=== PATIENT | male | born 1975 | race Two or more races ===

== ENCOUNTER 2025-02-08 06:54 | Inpatient (IN) | payer SELFPAY ==
[2025-02-08] VITALS (50 sets, daily range): BP systolic 81–149; BP diastolic 46–94; PULSE 77–171; RESP 0–36; TEMP 36.6–39.5; O2SAT 74–100; BMI 30.9
--- NOTE | 2025-02-08 07:06 | XR_ITS ---
Examination: Foot, left, 3 views Technique: AP, oblique, lateral views foot, 3 views Date and time of exam: February 08, 2025 0824 hours INDICATIONS: Left foot redness swelling and pain this week FINDINGS: Moderate osteopenia 4 mm linear foreign body in the soft tissue adjacent to the ungual tuft of distal phalanx first digit There is periosteal new bone involving the distal second and third metatarsals Very prominent soft tissue swelling surrounding the foot with air densities in the soft tissue around the distal tibia IMPRESSION: Positive for linear foreign body in the soft tissue first digit Osteomyelitis second and third metatarsals Consider MRI foot without contrast follow-up
--- NOTE | 2025-02-08 07:09 | XR_ITS ---
Examination: Duplex scan of the lower extremity, unilateral left Date and time of exam: February 08, 2025 0800 hours INDICATIONS: Left leg swelling and pain one month with a nonhealing wound Technique: Duplex scan of the extremity veins using B-mode/grayscale imaging and Doppler spectral analysis and color flow Attention is directed to internal echogenicity, compression and augmentation involving these veins, color flow assessment, spectral analysis Findings: Major deep venous structures in the extremity demonstrate normal course and caliber. There is no evidence of deep vein thrombosis. Normal color flow and spectral analysis Lymph nodes anterior to the left common femoral vein, the largest 3.7 cm Impression: Negative for DVT..
--- NOTE | 2025-02-08 07:09 | PD.EDRME ---
Rapid Medical Screening Exam RME Arrival date/time: 02/08/25 06:54 49-year-old male presents emergency department today for complaints of spider bite to his left foot patient reports incident happened 2 months ago Chief Complaint: Animal Bite Time Seen by Provider: 02/08/25 07:01 Vital signs: Vital Signs Temperature 99.6 F 02/08/25 07:06 Pulse Rate 119 H 02/08/25 07:06 Respiratory Rate 20 02/08/25 07:06 Blood Pressure 117/77 02/08/25 07:06 Pulse Oximetry (%) 100 02/08/25 07:06 Oxygen Delivery Method Room Air 02/08/25 07:06
[2025-02-08 07:48] LABS: Lactate (Lactic Acid) 2.1 mMol/L (0.4-2.0)
[2025-02-08 08:32] LABS: INR 1.5 (0.9-1.3); Prothrombin Time 15.8 Seconds (9.0-12.2)
[2025-02-08 08:35] LABS: Basophils # (Auto) 0.2 Thou/mm3 (0.0-0.2); Basophils % (Auto) 1 % (0-2.5); Eosinophils % (Auto) 0 % (0-10); Hematocrit 27.1 % (41.0-53.0); Hemoglobin 9.1 g/dL (13.5-16.0); Immature Granulocytes % (Auto) 5 % (0-0); Immature Granulocytes Auto 1.53 Thou/mm3 (0.00-0.00); Lymphocytes # (Auto) 1.6 Thou/mm3 (1.0-4.8); Lymphocytes % (Auto) 5 % (10-50); Mean Corpuscular HGB Conc 33.6 g/dl (31.0-37.0); Mean Corpuscular Hemoglobin 28.4 pg (25.0-35.0); Mean Corpuscular Volume 85 fL (80-100); Monocytes % (Auto) 6 % (0-12); Neutrophils # (Auto) 28.8 Thou/mm3 (1.8-7.7); Neutrophils % (Auto) 85 % (37-80); Nucleated Red Blood Cell % 0 /100 WBC (0); Platelet Count 531 Thou/mm3 (140-440); RDW Standard Deviation 38.9 fL (35.1-43.9); White Blood Count 34.1 Thou/mm3 (3.8-10.6)
[2025-02-08 08:42] LABS: Alanine Aminotransferase 26 U/L (10-49); Albumin, Serum 3.1 gm/dL (3.5-5.0); Albumin/Globulin Ratio 0.8 (1.2-2.2); Alkaline Phosphatase 225 U/L (46-116); Anion Gap 10 (7-16); Aspartate Amino Transferase 71 U/L (0-34); BUN/Creatinine Ratio 15 Ratio (12-20); Bilirubin,Total 0.6 mg/dL (0.3-1.2); Blood Urea Nitrogen 15 mg/dL (9-23); Calcium 8.1 mg/dL (8.3-10.6); Calcium (Corrected) 8.8 mg/dL (8.5-10.1); Carbon Dioxide 24.3 mMol/L (20.0-31.0); Chloride 88 mMol/L (98-107); Estimated Creatinine Clearance 88.1 mL/min (>60); Globulin 3.7 gm/dL (2.3-3.5); Potassium 4.1 mMol/L (3.4-5.1); Procalcitonin 4.79 ng/ml (0.0-0.49); Sodium 122 mMol/L (136-145); Total Protein 6.8 gm/dL (5.7-8.2); eGFR > 60 See Note
[2025-02-08 08:46] LABS: C-Reactive Protein 23.6 mg/dL (0.0-0.9); Osmolality,Calculated 264 (275-295)
[2025-02-08 08:54] LABS: Glucose 425 mg/dL (74-106)
--- NOTE | 2025-02-08 08:56 | PC.NURSE ---
CALL FROM [facility]ANDA IN LAB. PT'S GLUCOSE IS 425. DR. GOLDEN INFORMED.
--- NOTE | 2025-02-08 09:00 | PC.NURSE ---
PT CAME TO ED WITH A SWOLLEN, PAINFUL L) FOOT AND LOWER LEG. PT SAY HE WAS BIT BY A SPIDER OVER A MONTH AGO. MD ASSESSED LEG AND SAID THERE WAS A FOREIGN OBJECT IN PT'S FOOT. PT RESTING COMFORTABLY IN BED WITH FRIEND AT BEDSIDE. SEPSIS ALERT CALLED SO WILL FOLLOW SEPSIS PROTOCOL. WILL CONTINUE TO MONITOR PT.
--- NOTE | 2025-02-08 09:00 | PC.NURSE ---
SEPSIS ALERT CALLED [phone].
--- NOTE | 2025-02-08 09:07 | PD.EDSKIN ---
ED Skin Abcess FB-RME/HPI General Chief complaint: Animal Bite Stated complaint: POSS SPIDER BITE ON LEFT FOOT Time Seen by Provider: 02/08/25 07:01 Arrival date/time: 02/08/25 06:54 Limitations: no limitations RME / HPI RME / HPI narrative: 02/08/25 06:54 49-year-old male presents emergency department today for complaints of spider bite to his left foot patient reports incident happened [address] HERMAN MAIN ED EVALUATION: 49 year old male presents to the Emergency Department with complaint of right foot and right lower leg (below the knee) swelling. He states that he was bit by a spider one month ago. He has a foreign body showed in his foot, patient unsure of what happened or what the foreign body could be. PMHx: Diabetes. No surgeries or known allergies. Social Hx: Polysubstance use (methamphetamine and marijuana). Related Data Home Medications ?Medication ?Instructions ?Recorded ?Confirmed No Known Home Medications 07/09/23 07/09/23 Allergies Allergy/AdvReac Type Severity Reaction Status Date / Time No Known Allergies Allergy Verified 05/06/24 07:38 Review of Systems Review of Systems Systems Reviewed: All systems reviewed, normal except as documented Narrative Review of Systems: GEN: No fever, no chills, no weight loss EYES: No discharge, no visual changes, no pain HEENT: No ear pain, no congestion, no sore throat PULM: No shortness of breath, no cough, no congestion CV: No chest pain, no dyspnea on exertion, no palpitations GI: No nausea, no vomiting, no diarrhea, no pain, no constipation : No frequency, no urgency and no dysuria MUSC/SKEL: + right foot and right lower leg (below the knee) swelling; no back pain SKIN: No rash PSYCH: No hallucinations, no depression HEME/LYMPH: No easy bleeding or bruising tendencies NEURO: No weakness, no headache Past Medical History Past Medical History CARDIAC: Positive Hypertension Social History SMOKING STATUS: Current some day smoker SUBSTANCE USE: does not use ALCOHOL: Never ED Exam General Limitations: Present no limitations General appearance: Present alert and in no apparent distress Head Head exam: Present atraumatic, normocephalic and normal inspection Eye Eye exam: Present normal appearance, PERRL and EOMI ENT ENT exam: Present normal exam, normal oropharynx and mucous membranes moist Neck Neck exam: Present normal inspection, full ROM and trachea midline Chest Chest inspection: Present normal inspection and symmetric chest wall rise Respiratory Respiratory exam: Present normal lung sounds bilaterally Cardiovascular Cardiovascular exam: Present regular rate, normal rhythm and normal heart sounds Abdominal Exam Abdominal exam: Present soft and normal bowel sounds Extremities Exam Extremities exam: Present full ROM and other (right foot swelling extending to the right lower leg up to below the knee; difficult to access pulses) Back Exam Back exam: Present normal inspection and full ROM Neurological Exam Neurological exam: Present alert, oriented X3 and CN II-XII intact Psychiatric Psychiatric exam: Present normal affect and normal mood Skin Skin exam: Present warm and dry Course Quality Measures Current suspected stage: sepsis Possible source: skin/soft tissue (and bone) Blood cultures ordered: yes Antibiotic ordered: Yes Pertinent labs: 02/08/25 02/08/25 07:42 11:37 Lactic Acid 2.1 H mMol/L 3.4 H mMol/L (0.4-2.0) (0.4-2.0) Procalcitonin 4.79 H ng/ml (0.0-0.49) sepsis Orders Category Date Time Status Admit to Inpatient Status Routine Admission 02/08/25 12:[address] Screening NOW Care 02/08/25 09:[address] Screening NOW Care 02/08/25 11:01 Active Insert IV NOW Care 02/08/25 07:10 Active Diet Carbohydrate Consistent Diet 02/08/[address] lower leg LT w con Stat Exams 02/08/25 11:01 Completed US venous doppler LE LT Stat Exams 02/08/25 07:09 Completed XR foot comp LT min 3V Stat Exams 02/08/25 07:06 Completed A1C [Glycohemoglobin w (eAG)] Stat Lab 02/08/25 07:42 Completed Blood Culture (Lab) Stat Lab 02/08/25 07:37 Received CBC Stat Lab 02/08/25 07:42 Completed CMP [Comprehensive Metabolic Panel] Stat Lab 02/08/25 07:42 Completed CRP [C-Reactive Protein] Stat Lab 02/08/25 07:42 Completed Drug Screen,Urine Stat Lab 02/08/25 09:35 Completed ESR [Sed Rate (ESR)] Stat Lab 02/08/25 07:42 Completed Lactic Acid [Lactate (Lactic Acid)] Stat Lab 02/08/25 07:42 Completed Lactic Acid [Lactate (Lactic Acid)] Stat Lab 02/08/25 12:56 Ordered Lactic Acid, 3 HR Stat Lab 02/08/25 11:37 Completed PT [Prothrombin Time with INR] Stat Lab 02/08/25 07:42 Completed PTT [Partial Thromboplastin Time] Stat Lab 02/08/25 07:42 Completed Procalcitonin Stat Lab 02/08/25 07:42 Completed Renal Function Panel Stat Lab 02/08/25 12:55 Ordered INSULIN LISPRO (AdmeLOG) [HumaLOG] Med 02/08/25 09:17 Discontinued 5 unit SC X1 ONE Insulin Regular Med 02/08/25 12:55 Once 10 unit IV X1 ONE Insulin Regular Med 02/08/25 09:17 Discontinued 5 unit IV X1 ONE Piper/Tazo 3.375 gm Premix [Zosyn] Med 02/08/25 07:11 Discontinued 3.375 gm in 50 ml IV X1 Sodium Chloride 0.9% 1000 ml [Ns] 1,000 ml Med 02/08/25 09:17 Active IV 200 mls/hr Sodium Chloride 0.9% 1000 ml [Ns] 1,000 ml Med 02/08/25 12:56 Ordered IV 999 mls/hr Sodium Chloride 0.9% 1000 ml [Ns] 1,000 ml Med 02/08/25 12:57 Ordered IV 999 mls/hr Vancomycin/Ns 1 gm Ivpb 200 ml Med 02/08/25 07:15 Discontinued IV X1 Transfer Order Routine Transfer 02/08/25 10:58 Active Reevaluation(s) Reevaluation #1: Patient remains clinically stable throughout the emergency department visit. Re-assessment at the time of disposition demonstrates that the patient is in no acute distress. We reviewed all the results, analysis, and treatment plans. Patient is amenable to discharge. Strict return precautions were outlined. Patient was discharged in stable condition. Time: 09:34 Vital Signs Vital signs: Vital Signs Temperature 99.6 F 02/08/25 07:06 Pulse Rate 119 H 02/08/25 07:06 Respiratory Rate 20 02/08/25 07:06 Blood Pressure 117/77 02/08/25 07:06 Pulse Oximetry (%) 100 02/08/25 07:06 Oxygen Delivery Method Room Air 02/08/25 07:06 Skin / Abscess / Foreign Body MDM Narrative MDM Narrative:: I, Joseline Nik, am scribing for and in the presence of Dr. Herman. Patient is presenting with signs symptoms of infection of the left leg and the foot the x-ray does show osteomyelitis, patient also has severe leukocytosis Differential diagnoses are wide but include mainly the neck fasciitis and osteomyelitis with cellulitis There is also possibility of bacteremia Patient is not in septic shock But he definitely is in severe sepsis Patient will need to be covered for Pseudomonas and MRSA He does have diabetes There is also foreign body in his foot We need to have surgical evaluation for this foreign body Also we need to make sure there is no abscess in the foot or the leg area We get a gas CAT scan for the foot and leg Will cover with Zosyn and vancomycin Also on top this patient's sugar is elevated Will need to control his sugar As above we will get surgical evaluation Patient will be admitted for IV antibiotics and possible debridement and removal of the foreign body from the infected tissue I spoke with the hospitalist and he agreed to admit the patient He will also call the general surgeon for evaluation for this abscess in the leg CAT scan shows presence of lower leg abscess CAT scan of the foot showed no evidence of any abscess There is no foreign body there to Patient had extensive cellulitis but no necrotizing fasciitis Patient has sepsis but no septic shock Patient had uncontrolled diabetes Patient will be admitted and also have an I&D of the abscess and get his sugar controlled Patient was covered with Zosyn and vancomycin Final assessment Cellulitis Abscess of the leg Osteomyelitis Uncontrolled diabetes Patient data External records reviewed:: [facility] previous records (Reviewed last admission discharge dated 07/15/23, patient admitted for the following: AMS) Clinical information provided by:: patient Social determinants that could affect healthcare access:: substance use (polysubstance use (methamphetamine and marijuana)) Patient has the following chronic illnesses:: Diabetes and polysubstance use (methamphetamine and marijuana). No surgeries or known allergies. How is presenting disease/condition affected by chronic disease/condition?: no chronic disease Evaluation data The following diagnostics were reviewed and interpreted by me:: lab results and radiology exam(s) Lab and/or radiology exams considered but not ordered:: none Interpretation Summary: Procedure(s): US venous doppler LE LT Accession Number(s): [id number] cc: Fransisco (BAMBI),Maurice LACY; Walter Peterson MD; NO PRIMARY/FAMILY,PHYSICIAN~ Examination: Duplex scan of the lower extremity, unilateral left Date and time of exam: February 08, 2025 0800 hours INDICATIONS: Left leg swelling and pain one month with a nonhealing wound Technique: Duplex scan of the extremity veins using B-mode/grayscale imaging and Doppler spectral analysis and color flow Attention is directed to internal echogenicity, compression and augmentation involving these veins, color flow assessment, spectral analysis Findings: Major deep venous structures in the extremity demonstrate normal course and caliber. There is no evidence of deep vein thrombosis. Normal color flow and spectral analysis Lymph nodes anterior to the left common femoral vein, the largest 3.7 cm Impression: Negative for DVT.. Dictated By: Walter Peterson MD Procedure(s): XR foot comp LT min 3V Accession Number(s): [id number] cc: Fransisco (BAMBI),Maurice LACY; Walter Peterson MD; NO PRIMARY/FAMILY,PHYSICIAN~ Examination: Foot, left, 3 views Technique: AP, oblique, lateral views foot, 3 views Date and time of exam: February 08, 2025 0824 hours INDICATIONS: Left foot redness swelling and pain this week FINDINGS: Moderate osteopenia 4 mm linear foreign body in the soft tissue adjacent to the ungual tuft of distal phalanx first digit There is periosteal new bone involving the distal second and third metatarsals Very prominent soft tissue swelling surrounding the foot with air densities in the soft tissue around the distal tibia IMPRESSION: Positive for linear foreign body in the soft tissue first digit Osteomyelitis second and third metatarsals Consider MRI foot without contrast follow-up Dictated By: Walter Peterson MD Procedure(s): CT lower leg LT w con Accession Number(s): [id number] cc: Jennifer Herman MD; Walter Peterson MD; NO PRIMARY/FAMILY,PHYSICIAN~ Examination: CT left lower leg with intravenous contrast 2-D sagittal reconstructions. 2-D coronal reconstructions. 3-D reconstructions. Date and time of exam:February 08, 2025 1107 hours INDICATIONS: Left-sided leg pain and swelling several days, clinical diagnosis fasciitis CTDI: vol (mGy):6.7 DLP: (mGycm):474 Technique: Multiple 1.25 mm axial sections of the left lower extremity post intravenous administration 60 cc Isovue-370 have been obtained. 2-D sagittal and coronal reconstructions have been obtained. 3-D reconstructions have been obtained. Low dose protocols were performed. One or more of the following dose reduction techniques were used; automated exposure control, adjustment of the mA and/or KV according to patient size, use of iterative reconstruction technique. Findings: Diffuse edema in the subcutaneous fatty tissue surrounding the lower leg Atrophy of the medial gastrocnemius muscle fatty infiltration Soft tissue infection with gas-forming organisms in the anterior lower leg especially anterior and lateral to the tibia Soft tissue abscess anterior lateral lower leg AP dimension 6.5 cm cephalad caudad dimension 21 cm extending to the ankle, mediolateral dimension at least 2.5 cm No desmond cortical bone destruction involving the tibia IMPRESSION: Soft tissue abscess with gas-forming organisms in the soft tissue anterior and lateral to the mid and lower tibia extending to the ankle, 6.5 x 21 x 2.5 cm in dimension, recommend surgical consultation Dictated By: Walter Peterson MD Medications / Prescriptions Medications or Prescriptions considered but not ordered:: none Medication administrations:: Medication Administration History Sodium Chloride (Ns) 1,000 mls @ 200 mls/hr IV .Q5H ONE Stop: 02/08/25 14:16 Last Admin: 02/08/25 10:04 Dose: 200 mls/hr Documented By: MARGOT Sodium Chloride (Ns) 1,000 mls @ 999 mls/hr IV .Q1H1M ONE Stop: 02/08/25 13:56 Sodium Chloride (Ns) 1,000 mls @ 999 mls/hr IV .Q1H1M ONE Stop: 02/08/25 13:57 Insulin Human Regular (Insulin Hum Regular 1 Unit/0.01 Ml (Per Unit)) 10 unit IV X1 ONE Stop: 02/08/25 12:56 Discontinued Medications Piperacillin/Tazobactam/Dextrose (Zosyn) 3.375 gm in 50 mls @ 100 mls/hr IV X1 ONE Stop: 02/08/25 07:40 Last Infusion: 02/08/25 09:52 Dose: Infused Documented By: Admin: 02/08/25 09:22 Dose: 100 mls/hr Documented By: MARGOT Vancomycin/Sodium Chloride (Vancomycin/Ns 1 Gm Ivpb) 200 mls @ 120 mls/hr IV X1 ONE Stop: 02/08/25 08:54 Last Admin: 02/08/25 10:03 Dose: 120 mls/hr Documented By: MARGOT Insulin Human Lispro (Insulin Lispro (Admelog) 1 Unit/0.01 Ml Unit) 5 unit SC X1 ONE Stop: 02/08/25 09:18 Last Admin: 02/08/25 10:06 Dose: 5 unit Documented By: MARGOT Co-signed By: AJ Insulin Human Regular (Insulin Hum Regular 1 Unit/0.01 Ml (Per Unit)) 5 unit IV X1 ONE Stop: 02/08/25 09:18 Last Admin: 02/08/25 10:09 Dose: 5 unit Documented By: MARGOT Co-signed By: AJ see above Consultations Consultation(s) initiated? (list below): Yes Consultation #1 (Physician, Specialty, Details): Discussed test HPI, PMHx, lab, radiology results and/or management with hospitalist Dr. Ashford. Will admit for further evaluation and management. Accepts patient for admission. Surgery will be consulted. Time: 12:51 Diagnosis Skin/Abscess Differential Diagnosis: abscess of skin or subcutaneous tissue, cellulitis and other (osteomyelitis, neck fasciitis, bacteremia) Most likely diagnosis given after review of the tests above:: Osteomyelitis Leukocytosis Sepsis Right leg abscess Cellulitis Uncontrolled diabetes Admission Indicated Admission indicated?: indicated Admission Request Was there a request for admission?: Yes Admission Attestation Admission request attestation: Discussed case with [] from Hospitalist service regarding admission. Discussed patients ED course, exam findings, labs, and radiology results. The Hospitalist [agrees,declines] to accept the patient for admission. Disposition Plan Disposition Plan: Admit Critical Care Time Critical Care Time Critical Care Time: Yes Total Critical Care Time (min.): 60 Attestation: The high probability of sudden, clinically significant deterioration in the patient?s condition required the highest level of my preparedness to intervene urgently. The services I provided to this patient were to treat and/or prevent clinically significant deterioration. Services included the following: chart data review, reviewing nursing notes and/or old charts, documentation time, investment consultant collaboration regarding findings and treatment options, medication orders and management, direct patient care, vital sign assessments and ordering, interpreting and reviewing diagnostic studies and lab tests. Aggregate critical care time includes only time during which I was engaged in work directly related to the patient?s care, as described above, whether at bedside or elsewhere in the Emergency Department. It did not include time spent performing other reported procedures or the services of residents, students, nurses or physician assistants. Discharge Plan Plan Patient Disposition: Admit Acute Care w/in Hospital Patient condition on transfer: Stable Prescriptions/Referrals Prescriptions/Med Rec: No Action No Known Home Medications Referrals: No Primary/Family,Physician [Primary Care Provider] - In 1 week Problem List Clinical Impression: Sepsis, Osteomyelitis, Leukocytosis, Cellulitis and abscess of right leg, Uncontrolled diabetes mellitus Patient/Caregiver Discharge Instructions Print Language: Hungarian Stand Alone Forms: Sabiha Award Info., Patient Portal Info Letter
[2025-02-08 09:16] LABS: Sed Rate (ESR) 44 mm/hr (0-15)
--- NOTE | 2025-02-08 09:20 | PC.NURSE ---
CALL FROM RON IN CT. HE SAID THE DOC ORDER A CT OF THE FOOT AND A CT OF THE FOOT AND LOWER LEG. WHICH ORDER DID THE DOC TO WANT DONE. SPOKE W/ DR. ERNANDEZ AND HE SAID TO DISCONTINUE TO CT OF THE FOOT AND KEEP THE ORDER OF THE FOOT/LOWER LEG.
[2025-02-08] MEDS: PIPER/TAZO 3.375 GM PREMIX 3.375 GM/50 ML BAG IV ×2 (09:22→21:10)
[2025-02-08 09:48] LABS: Glucose Estimated Average 355 mg/dL (80-131); Hemoglobin A1C > 14.0 % Hgb (4.8-6.0)
[2025-02-08] MEDS: VANCOMYCIN/NS 1 GM IVPB 200 ML IV (10:03)
[2025-02-08] MEDS: SODIUM CHLORIDE 0.9% 1000 ML 1,000 ML 200 ML IV (10:04)
[2025-02-08] MEDS: INSULIN LISPRO (AdmeLOG) 1 UNIT/0.01 ML UNIT 5 UNIT SC (10:06)
[2025-02-08] MEDS: INSULIN HUM REGULAR 1 UNIT/0.01 ML (PER UNIT) 5 UNIT IV (10:09)
[2025-02-08 10:17] LABS: Amphetamine/Methamp Scrn,U Positive (Negative); Barbiturate Screen,Urine Negative (Negative); Benzodiazepines Screen,Urine Negative (Negative); Benzoylecgonine Screen, Ur Negative (Negative); Fentanyl Screen,Urine Negative (Negative); Opiate Screen,Urine Negative (Negative); THC Screen,Urine Negative (Negative)
[2025-02-08 10:47] LABS: Reflex Lactate? Y
--- NOTE | 2025-02-08 11:01 | XR_ITS ---
Examination: CT left lower leg with intravenous contrast 2-D sagittal reconstructions. 2-D coronal reconstructions. 3-D reconstructions. Date and time of exam:February 08, 2025 1107 hours INDICATIONS: Left-sided leg pain and swelling several days, clinical diagnosis fasciitis CTDI: vol (mGy):6.7 DLP: (mGycm):474 Technique: Multiple 1.25 mm axial sections of the left lower extremity post intravenous administration 60 cc Isovue-370 have been obtained. 2-D sagittal and coronal reconstructions have been obtained. 3-D reconstructions have been obtained. Low dose protocols were performed. One or more of the following dose reduction techniques were used; automated exposure control, adjustment of the mA and/or KV according to patient size, use of iterative reconstruction technique. Findings: Diffuse edema in the subcutaneous fatty tissue surrounding the lower leg Atrophy of the medial gastrocnemius muscle fatty infiltration Soft tissue infection with gas-forming organisms in the anterior lower leg especially anterior and lateral to the tibia Soft tissue abscess anterior lateral lower leg AP dimension 6.5 cm cephalad caudad dimension 21 cm extending to the ankle, mediolateral dimension at least 2.5 cm No desmond cortical bone destruction involving the tibia IMPRESSION: Soft tissue abscess with gas-forming organisms in the soft tissue anterior and lateral to the mid and lower tibia extending to the ankle, 6.5 x 21 x 2.5 cm in dimension, recommend surgical consultation
--- NOTE | 2025-02-08 11:32 | PC.NURSE ---
CALLED LAB AND SPOKE W/ KATIE RE: REPEAT LACTIC BEING DRAWN. SHE SAID SHE WILL SEND TRE.
[2025-02-08 11:44] LABS: Lactic Acid, 3 HR 3.4 mMol/L (0.4-2.0)
[2025-02-08 13:25] LABS: Lactate (Lactic Acid) 1.8 mMol/L (0.4-2.0)
--- NOTE | 2025-02-08 13:28 | PD.RESHP ---
Documentation for date of: 02/08/25 HPI History of Present Illness Chief complaint: leg swelling History of present illness: 49-year-old male with no past medical history presented to ED due to left lower extremity swelling. Patient states about a month ago patient had a spider bite and leg started to swell up, however 1 week ago swelling became more drastic and the patient was unable to walk or bear weight on the affected limb. Pain is described as 9 out of 10 when putting pressure on the extremity. Patient also endorses having fevers and chills for about 2 days. Patient lives with his nephew noticed that he was unable to walk or bear weight and was brought to the ED. Of note per ED labs here patient is diabetic with an A1c of more than 14 however patient was unaware that he was diabetic. At this time patient denies chest pain, shortness of breath, abdominal pain, nausea, vomiting, diarrhea, recent sick contacts, recent travel. General surgery was consulted and patient will be admitted for surgical intervention for necrotizing fascitis. ED course: ED vitals: BP 117/77, HR 119, RR 20, temperature 101.3, O2 sat 100% on room air ED labs: WBCs 34.1, hemoglobin 9.1, sodium 122, glucose 228, lactic acid 3.4 procalcitonin 4.79, U-Tox positive for methamphetamine, ED imaging: Foot x-ray shows osteomyelitis of 2nd and 3rd metatarsals, positive for linear foreign body in the soft tissue of first digit, ultrasound lower extremity negative for DVT, lower extremity CT positive for gas-forming organisms in the soft tissue anterior and lateral to the mid and lower tibia extending to the ankle. ED Tx: Zosyn 3.375 g x 1, vancomycin x 1, 2 L NS insulin lispro 5 units subcu, 15 units of regular insulin, general surgery consulted for necrotizing fascitis. PMHx: Unknown SxHx: None Social Hx: 1-1/2 packs every 2 days no cigarettes, denies alcohol use, denies illicit substances including THC however of note U tox came positive for methamphetamine. FHx: unknown Review of Systems Review of Systems Narrative Review of Systems: Narrative ROS GENERAL: + fevers/chills, diaphoresis. HEENT: Denies headache or visual/hearing changes. Denies nasal discharge. NEURO: Denies unusual weakness or difficulty speaking. CARDIO: Denies chest pain or palpitations. PULM: Denies SOB, coughing, or wheezing. GI: Denies abdominal pain, N/V/C/D/reflux/gas, bright red blood per rectum or melena. Reports having BMs. URO: Denies burning/itching/pain/urinary changes. MSK/EXT/SKIN: + pain on LLE PSYCH: Cooperative, pleasant mood & affect. The rest of the review of systems is otherwise negative. Exam Vital Signs Temp Pulse Resp BP Pulse Ox O2 Del Method 101.3 F H 110 H 23 H 120/81 97 Room Air 02/08/25 13:23 02/08/25 13:23 02/08/25 13:23 02/08/25 13:23 02/08/25 13:23 02/08/25 13:23 Narrative Exam Physical Exam GENERAL: NAD, AAOx3 HEENT: Moist mucosa. Eyes open, symmetrical, & clear CARDIO: Heart RRR, no obvious murmurs PULM: No noted coughing/dyspnea CTA B/L, no R/W/R GI: Abdomen soft, nondistended, no pain on palpation. BS+ SKIN/MSK/EXT: LLE red, swollen, with anterior foot oozing pus, warm to the touch, Pedal pulses present B/L NEURO: AAOx3, no focal neuro deficits, able to move all 4 extremities Results: Labs 02/10/25 05:09 02/10/25 05:09 Labs: Short CBC 02/08/25 Range/Units 07:42 WBC 34.1 H (3.8-10.6) Thou/mm3 Hgb 9.1 L (13.5-16.0) g/dL Hct 27.1 L (41.0-53.0) % Plt Count 531 H (140-440) Thou/mm3 BMP 02/08/25 07:42 Sodium 122 L Potassium 4.1 Chloride 88 L Carbon Dioxide 24.3 BUN 15 Creatinine 1.0 Glucose 425 H* Calcium 8.1 L Liver Function 02/08/25 Range/Units 07:42 Total Bilirubin 0.6 (0.3-1.2) mg/dL AST 71 H (0-34) U/L ALT 26 (10-49) U/L Alkaline Phosphatase 225 H (46-116) U/L Albumin 3.1 L (3.5-5.0) gm/dL Quality Measures Quality Measures sepsis Current suspected stage: sepsis Possible source: skin/soft tissue (and bone) Blood cultures ordered: yes Antibiotic ordered: Yes Medications Home Medications and Allergies Home Medications ?Medication ?Instructions ?Recorded ?Confirmed ?Type No Known Home Medications 07/09/23 07/09/23 History Allergies Allergy/AdvReac Type Severity Reaction Status Date / Time No Known Allergies Allergy Verified 05/06/24 07:38 Visit Medications Acetaminophen (Acetaminophen 325 Mg Tablet) 650 mg PO Q6H PRN PRN Reason: Fever >99.5 Stop: 03/10/25 13:21 Acetaminophen (Acetaminophen 325 Mg Tablet) 650 mg PO Q6H PRN PRN Reason: PAIN SCALE 1-3 (mild Stop: 03/10/25 13:21 Hydrocodone Bitart/Acetaminophen (Hydrocodone/Apap 5/325 Tablet) 1 tab PO Q4HR PRN PRN Reason: PAIN SCALE 4-10(Mod-Sev Stop: 02/13/25 13:21 Sodium Chloride (Ns) 1,000 mls @ 200 mls/hr IV .Q5H ONE Stop: 02/08/25 14:16 Last Admin: 02/08/25 10:04 Dose: 200 mls/hr Sodium Chloride (Ns) 1,000 mls @ 999 mls/hr IV .Q1H1M ONE Stop: 02/08/25 13:56 Sodium Chloride (Ns) 1,000 mls @ 999 mls/hr IV .Q1H1M ONE Stop: 02/08/25 13:57 Clindamycin Phosphate 900 mg/ (IV Miscellaneous Supplies) 50 mls @ 50 mls/hr IV Q8HR SERA Stop: 02/15/25 13:59 Sodium Chloride (Ns) 500 mls @ 999 mls/hr IV .Q31M ONE Stop: 02/08/25 13:52 Morphine Sulfate (Morphine Sulf Inj 10 Mg/Ml Vial) 2 mg IVP Q2H PRN PRN Reason: BREAKTHROUGH PAIN Stop: 02/13/25 13:21 Ondansetron HCl (Ondansetron Inj 2 Mg/Ml Inj 2 Ml) 4 mg IV Q6H PRN; Protocol PRN Reason: NAUSEA OR VOMITING Stop: 03/10/25 13:21 Sennosides (Senna Tablet) 1 tab PO QDAY SERA; Protocol Stop: 03/11/25 08:59 Discontinued Medications Piperacillin/Tazobactam/Dextrose (Zosyn) 3.375 gm in 50 mls @ 100 mls/hr IV X1 ONE Stop: 02/08/25 07:40 Last Infusion: 02/08/25 09:52 Dose: Infused Vancomycin/Sodium Chloride (Vancomycin/Ns 1 Gm Ivpb) 200 mls @ 120 mls/hr IV X1 ONE Stop: 02/08/25 08:54 Last Infusion: 02/08/25 13:01 Dose: Infused Doxycycline Hyclate 100 mg/ (Sodium Chloride) 100 mls @ 100 mls/hr IV BID SERA Stop: 02/15/25 20:59 Piperacillin/Tazobactam/Dextrose (Zosyn) 50 mls @ 100 mls/hr IV Q6HR SERA Stop: 02/15/25 13:25 Insulin Human Lispro (Insulin Lispro (Admelog) 1 Unit/0.01 Ml Unit) 5 unit SC X1 ONE Stop: 02/08/25 09:18 Last Admin: 02/08/25 10:06 Dose: 5 unit Insulin Human Regular (Insulin Hum Regular 1 Unit/0.01 Ml (Per Unit)) 5 unit IV X1 ONE Stop: 02/08/25 09:18 Last Admin: 02/08/25 10:09 Dose: 5 unit Insulin Human Regular (Insulin Hum Regular 1 Unit/0.01 Ml (Per Unit)) 10 unit IV X1 ONE Stop: 02/08/25 12:56 Assessment & Plan Plan 49-year-old male with no past medical history who presented to the ED with left lower extremity extremity unable to bear weight. Was admitted for necrotizing fasciitis, general surgery was consulted will be taken to the operating room. #Sepsis secondary to #Necrotizing fasciitis #Osteomyelitis of 2nd and 3rd metatarsal #Lactic acidosis?resolved On presentation vitals significant for tachycardia, tachypnea, febrile, leukocytosis with source being left lower extremity with necrotizing fasciitis/osteomyelitis Patient with left lower extremity swelling symptoms onset about 1 week Patient does state that he noted a spider bite about a month ago Foot x-ray shows osteomyelitis on 2nd and 3rd metatarsals, positive foreign body in soft tissue first digit No concern for DVT as ultrasound was negative Lower extremity CT showed soft tissue abscess with gas-forming organisms in the soft tissue anterior lateral of the mid and lower tibia extending to the ankle LRINEC score: 7 ? General Surgery consulted, appreciate recommendations ? On clindamycin (02/08/2025-) ? Blood cultures ordered ? Patient will go to the OR with general surgery for proper source control ? Pain medications on board ? 500ml NS bolus given to complete sepsis bolus ? NPO for OR #Newly diagnosed diabetes A1c stopped registering after >14 Patient was unaware that he was diabetic ? SSI ? Hypoglycemia protocol in place ? Registered dietitian referral sent Case discussed with my senior Dr. Somers and my attending Dr. Dejon Laguna MD PGY-1 Disposition: tele Fluids: NS Feeding: NPO for OR Thrombo prophylaxis: SCDs Gastric Ulcer prophylaxis: none CODE STATUS: DNR Patient examined and case discussed with the team including attending physician. Note reviewed, I agree with the care plan as documented. Mr. Angeles is a 49-year-old male with new onset uncontrolled type 2 diabetes A1c > 14%, who is being admitted for severe sepsis secondary to left lower extremity cellulitis, and possible necrotizing fasciitis. Vital show tachycardia 120s, fever 103F and labs show leukocytosis WBC 34.1. Imaging also shows osteomyelitis of 2nd and 3rd metatarsal. Started on IV clindamycin 90 mg every [address] Coker is consulted, appreciate recommendations. Patient doing remain n.p.o. and proceed to the OR today. Will re-evaluate post procedure. - Javier Somers MD, PGY 2 Disclaimer: The document may contain phonetic/typographic errors due to voice recognition software. These errors are purely due to imperfections in the software program and should not be misconstrued in any way to compromise the substance of the patient's medical care during this visit. Attending Provider Attestation/Addendum 49-year-old male with unknown previous medical history who presented with left lower extremity swelling found to have uncontrolled hyperglycemia and internal medicine was consulted for sepsis. Upon evaluation, patient to have gas-forming changes on the CT for which there is a concern for necrotizing fasciitis and subsequently general surgery was consulted and plan for emergent surgical intervention. In addition, patient also noted to have uncontrolled hyperglycemia for which we will start patient on insulin. Of note, patient is requesting to be DNR and despite multiple counseling stated that understands that DNR means do not necessitate and I personally explained to him that if his heart was to stop this means that were unable to revive him and he will pass away for which patient understands and verbalized understanding. Continues to want to be DNR/DNI for which we will respect his decision. As of now, continue vancomycin, Zosyn, clindamycin and plan for emergent surgical intervention today.I reviewed above note and agree with findings and plans. I have also personally examined the patient with medicine team and went over assessment and plan with medical team including collector of internal revenue and resident physician.
[2025-02-08] MEDS: INSULIN HUM REGULAR 1 UNIT/0.01 ML (PER UNIT) 10 UNIT IV (13:35)
[2025-02-08] MEDS: SODIUM CHLORIDE 0.9% 1000 ML 1,000 ML 999 ML IV ×2 (13:35→15:58)
--- NOTE | 2025-02-08 13:45 | PC.NURSE ---
CALLED DR. GRIFFIN RE: BLOOD SUGAR RESULTS OR 199. DR. RAMIREZ ANSWERED. SHE SAID TO CONTINUE WITH THE REG INSULIN 10 UNITS IV PER ORDERED. NOTED.
[2025-02-08 13:48] LABS: Albumin, Serum 2.9 gm/dL (3.5-5.0); Anion Gap 5 (7-16); BUN/Creatinine Ratio 16 Ratio (12-20); Blood Urea Nitrogen 13 mg/dL (9-23); Calcium 8.2 mg/dL (8.3-10.6); Calcium (Corrected) 9.1 mg/dL (8.5-10.1); Carbon Dioxide 25.1 mMol/L (20.0-31.0); Chloride 92 mMol/L (98-107); Creatinine (Component) 0.8 mg/dL (0.6-1.3); Estimated Creatinine Clearance 110.1 mL/min (>60); Glucose 228 mg/dL (74-106); Osmolality,Calculated 253 (275-295); Potassium 3.8 mMol/L (3.4-5.1); Sodium 122 mMol/L (136-145); eGFR > 60 See Note
[2025-02-08] MEDS: CLINDAMYCIN 900MG IVPB 900 MG in PRE-MIXED 1 BAG 50 MG IV ×2 (13:58→21:02)
--- NOTE | 2025-02-08 14:25 | PD.SURCONS ---
HPI Consult details Consult date: 02/08/25 Reason for consultation narrative: Cellulitis and abscess of left leg History of present illness: 49-year-old male without significant past medical history presented to the emergency department with worsening left leg pain. He states that he was bitten by a spider about a month ago. He states that he did not seek medical advice and used home remedies. Over the past week his symptoms have been getting progressively worse with increased pain, swelling and difficulty ambulating. He denies fever, chills, nausea or vomiting. CT scan revealed soft tissue infection with possible gas-forming organism. Review of Systems Constitutional Constitutional: Denies chills and Denies fever(s) Cardiovascular Cardiovascular: Denies chest pain Respiratory Respiratory: Denies cough Gastrointestinal Gastrointestinal: Denies nausea and Denies vomiting Hematologic/Lymphatic Hematologic/Lymphatic: Denies easy bleeding and Denies easy bruising Past Medical History Surgical History OTHER SURGICAL HX: Denies any surgeries in the past Social History SMOKING STATUS: Current every day smoker SUBSTANCE USE: does not use ALCOHOL: Never Meds Home Medications and Allergies Home Medications ?Medication ?Instructions ?Recorded ?Confirmed ?Type No Known Home Medications 07/09/23 07/09/23 History Allergies Allergy/AdvReac Type Severity Reaction Status Date / Time No Known Allergies Allergy Verified 05/06/24 07:38 Exam Vital Signs Temp Pulse Resp BP Pulse Ox O2 Del Method 101.3 F H 110 H 23 H 120/81 97 Room Air 02/08/25 13:23 02/08/25 13:23 02/08/25 13:23 02/08/25 13:23 02/08/25 13:23 02/08/25 13:23 Constitutional Constitutional: no acute distress Routine Extremities Exam Comments: Edema with significant cellulitis of left leg extending to his foot. DP and PT pulses are not palpable Results Results: Laboratory Laboratory results: results reviewed Results: Imaging Imaging narrative: CT scan of left lower extremity images reviewed, radiologist interpretation noted Assessment & Plan Problem List (1) Cellulitis and abscess of left leg: Status: Acute Plan Patient was started on multiple antibiotic coverage. He will be taken to the operating room for incision and drainage. Risks include but not limited to infection, bleeding, injury to surround neurovascular structures, chronic nonhealing wound, need for further procedures and or operation discussed with the patient. Benefits and alternatives explained to him, all his questions answered, he agreed and consented to proceed with the operation.
--- NOTE | 2025-02-08 15:00 | PC.NURSE ---
WENT TO TELL DR. ERNANDEZ ABOUT PT'S HR IN THE 150'S - 160'S. HE WAS IN ANOTHER EMERGENCY SO TOLD HIM PT'S HR.
[2025-02-08] MEDS: DILTIAZEM INJ 5 MG/ML VIAL 5 ML 20 MG IV (15:26)
[2025-02-08 15:46] LABS: Path Review Blood Smear Sent to Pathologist
--- NOTE | 2025-02-08 15:55 | PC.NURSE ---
INFORMED DR. العراقي OF PT'S TEMP OF 103.1.
[2025-02-08] MEDS: SODIUM CHLORIDE 0.9% 500 ML 500 ML 999 ML IV (16:00)
--- NOTE | 2025-02-08 16:05 | PC.NURSE ---
PT TAKEN TO OR VIA [facility] ACCOMPANIED BY 2 RN'S.
--- NOTE | 2025-02-08 17:13 | PD.SUROPNT ---
Date of Procedure 02/08/25 Pre Op Diagnosis Cellulitis and abscess of left leg Post Op Diagnosis Cellulitis and abscess of left leg Procedure Incision and drainage of left leg abscess Findings Significant cellulitis and copious amount of foul-smelling purulent fluid in the distal left leg extending to the foot Procedure Description Patient brought into the operating room in supine position. After administration of general tracheal anesthesia, patient's left lower extremity prepped and draped in standard surgical manner. An approximately 4 cm incision was made in the medial aspect of distal leg and dissection was deepened into soft tissue. Copious amount of foul-smelling purulent drainage encountered, cultures were obtained. The abscess cavity was extending to his foot and proximally to mid leg. A counterincision was made on the lateral aspect and patient had some purulent drainage emanating from the lateral aspect as well. The abscess cavity was tracking up to the foot, there was a small opening on the dorsal aspect of the mid foot that had purulent fluid emanating. All these cavities were communicating. On the medial aspect the fascia noted to be infected however underlying muscle were appeared to be intact. The cavity is copiously and thoroughly washed and irrigated with Betadine mixed with peroxide and saline and further washed with warm saline. Hemostasis achieved using the cautery. The cavity is packed with wet-to-dry dressings. Patient tolerated procedure well. He was extubated, breathing spontaneously without difficulty and was transferred to postanesthesia care in stable condition. Instruments, needles and sponge counts were reported to be correct x 2. Anesthesia GETA Pathology / specimen Other (Cultures from the abscess cavity) Estimated Blood Loss 10 Condition Stable Disposition ICU Surgeon Diana Coker MD Surgical Staff Operation Date: 02/08/25 17:30 <No data on this case meets the specified criteria>
--- NOTE | 2025-02-08 17:16 | SUR.PHASEI ---
1716: Pt. arrived with oral airway in place, vitals stable, breathing unlabored, no signs of distress, dressing to left leg CDI, bottom layer of dressing has some blood present but it doesn't appear to be an active bleed, bilateral popliteal pulses strong and regular, bilateral cap refill to feet less than 3 seconds, pt. has wound on top of left foot, MD Linares stated that was where infection started. Left left is swollen, red, and warm to touch, OR staff stated that was present prior to surgery. Report received from MD Linares and Lakia MCLEOD.
[2025-02-08 17:31] LABS: Creatine Kinase 29 U/L (34-171)
--- NOTE | 2025-02-08 17:31 | ESCONSULT_ITS ---
HPI Data of Consult Requesting Physician: Seven Ashford MD Admitting Provider: Seven Ashford MD Attending Provider: Seven Ashford MD Primary Care Provider: Physician No Primary/Family Consult Narrative History of present illness: CC: Swelling of lower leg 49-year-old male with no past medical history presented to ED due to left lower extremity swelling. Patient states about a month ago patient had a spider bite and leg started to swell up, however 1 week ago swelling became more drastic and the patient was unable to walk or bear weight on the affected limb. Pain is described as 9 out of 10 when putting pressure on the extremity. Patient also endorses having fevers and chills for about 2 days. Patient first noticed the possible spider bite 1 month ago, denied trauma to site. Initially on the dorsal foot that spread. Patient lives with his nephew noticed that he was unable to walk or bear weight and was brought to the ED. Of note per ED labs here patient is diabetic with an A1c of more than 14 however patient was unaware that he was diabetic. At this time patient denies chest pain, shortness of breath, abdominal pain, nausea, vomiting, diarrhea, recent sick contacts, recent travel. Patient denied IV drug use. Previous admission to the hospital for acute encephlopathy, concern for West Nile, but patient left AMA. General surgery was consulted and patient will be admitted for surgical intervention for necrotizing fasciitis. ED course: ED vitals: BP 117/77, HR 119, RR 20, temperature 101.3, O2 sat 100% on room air labs: WBCs 34.1, hemoglobin 9.1, sodium 122, glucose 228, lactic acid 3.4 procalcitonin 4.79, U-Tox positive for methamphetamine, ED imaging: Foot x-ray shows osteomyelitis of 2nd and 3rd metatarsals, positive for linear foreign body in the soft tissue of first digit, ultrasound lower extremity negative for DVT, lower extremity CT positive for gas-forming organisms in the soft tissue anterior and lateral to the mid and lower tibia extending to the ankle. ED Tx: Zosyn 3.375 g x 1, vancomycin x 1, 2 L NS insulin lispro 5 units subcu, 15 units of regular insulin, general surgery consulted for necrotizing fascitis. Previous echo on file: 07/11/2023 Echo EF 55-60% ICU consulted for sepsis secondary to necrotizing fasciitis s/p incidison and drainage on 02/08/2025, monitor fo signs of shock. cc:: cc: Seven Ashford MD Review of Systems Review of Systems Narrative Review of Systems: General appearance: NO weight change, NO fatigue, YES weakness, YES fever, YES chills, NO night sweats, No cough Skin: NO rash, NO itching, NO sores, NO moles HEENT: NO Trauma, NO nausea, NO vomiting, NO visual changes, NO blurry vision, NO double vision, NO tinnitus, NO vertigo, NO ear discharge, NO rhinorrhea, NO stuffiness, NO sneezing, NO allergy, NO epistaxis. NO Hoarseness, NO sore throat, NO swollen neck. Cardiac: NO Palpitations, NO dyspnea on exertion, NO orthopnea, NO paroxysmal nocturnal dyspnea, NO edema Respiratory: NO Shortness of Breath, NO Wheezing, NO Cough, NO Sputum, NO hemoptysis GI:NO appetite, NO nausea, NO vomiting, NO dysphagia, NO changes in bowel frequency, NO stool color, NO diarrhea, NO constipation, NO hemetemesis, NO hemorrhoids, NO melena, NO hematechezia, NO abdominal pain, NO jaundice Renal: NO frequency, NO hesitancy, NO urgency, NO hematuria, NO nocturia, NO incontinence MSK: NO muscle weakness, NO gout, NO arthritis, NO muscle stiffness Neuro: NO headaches, NO tremors, NO weakness, NO paralysis, NO seizures, NO loss of consciousness, NO numbness. Hem: NO anemia, NO easy bruising/bleeding, NO petechiae, NO purpura Endo: NO heat/cold intolerance, NO excessive sweating, NO polyuria, NO polydipsia, NO polyphagia, NO thyroid problems, NEW diagnosis on admission diabetes Pysch: NO mood, NO anxiety, NO depression Exam Vital Signs Temp Pulse Resp BP Pulse Ox O2 Del Method 103.1 F H 120 H 17 118/71 99 Room Air 02/08/25 16:02/08/25 16:03 02/08/25 16:03 02/08/25 16:03 02/08/25 16:03 02/08/25 16:03 Narrative Exam General Appearance: Alert & Oriented X3, well-nourished male who is lying in bed in no acute distress. Left lower HEENT: Skull symmetrical and atraumatic. Conjunctivae pink and moist. Pupils equal, round, reactive to light and accommodation (PERRL). External ear without lesion or discharge. Cardio: Normal Rate and Rhythm with S1 and S2 heart sounds. Murmur appreciated, likely holosystolic. No bruits on carotid auscultation. No peripheral edema or cyanosis. Lungs: Symmetric with good expansion. Chest and back non-tender. Breath sounds vesicular without crackles, wheezing or rhonchi Abdomen: Non-tender, Non-distended, Normal Reactive Bowel Sounds Neuro: Alert, cooperative, oriented to person, place, and time. Speech clear. CN grossly intact. Upper motor strength 5/5 and Lower motor strength 5/5. Sensation intact. Results Labs 02/09/25 04:30 02/09/25 04:30 Labs: Short CBC 02/08/25 Range/Units 07:42 WBC 34.1 H (3.8-10.6) Thou/mm3 Hgb 9.1 L (13.5-16.0) g/dL Hct 27.1 L (41.0-53.0) % Plt Count 531 H (140-440) Thou/mm3 BMP 02/08/25 02/08/25 07:42 13:18 Sodium 122 L 122 L Potassium 4.1 3.8 Chloride 88 L 92 L Carbon Dioxide 24.3 25.1 BUN 15 13 Creatinine 1.0 0.8 Glucose 425 H* 228 H D Calcium 8.1 L 8.2 L Liver Function 02/08/25 02/08/25 Range/Units 07:42 13:18 Total Bilirubin 0.6 (0.3-1.2) mg/dL AST 71 H (0-34) U/L ALT 26 (10-49) U/L Alkaline Phosphatase 225 H (46-116) U/L Albumin 3.1 L 2.9 L (3.5-5.0) gm/dL Quality Measures Quality Measures sepsis Current suspected stage: sepsis Possible source: skin/soft tissue (and bone) Blood cultures ordered: yes Antibiotic ordered: Yes Medications Home Medications and Allergies Home Medications ?Medication ?Instructions ?Recorded ?Confirmed ?Type No Known Home Medications 07/09/2301/26 History Allergies Allergy/AdvReac Type Severity Reaction Status Date / Time No Known Allergies Allergy Verified 05/06/24 07:38 Visit Medications Acetaminophen (Acetaminophen 325 Mg Tablet) 650 mg PO Q6H PRN PRN Reason: Fever >99.5 Stop: 03/10/25 13:21 Acetaminophen (Acetaminophen 325 Mg Tablet) 650 mg PO Q6H PRN PRN Reason: PAIN SCALE 1-3 (mild Stop: 03/10/25 13:21 Hydrocodone Bitart/Acetaminophen (Hydrocodone/Apap 5/325 Tablet) 1 tab PO Q4HR PRN PRN Reason: PAIN SCALE 4-10(Mod-Sev Stop: 02/13/25 13:21 Dextrose (Dextrose 50%-Water Inj 50 Ml Syringe) 25 ml IV Q15MIN PRN PRN Reason: BG 50-70 responsive npo pt Stop: 03/10/25 14:05 Dextrose (Dextrose 50%-Water Inj 50 Ml Syringe) 50 ml IV Q15MIN PRN PRN Reason: BG <50 OR BG <70 & pt unresponsive Stop: 03/10/25 14:05 Glucagon (Glucagon Inj 1 Mg Vial) 1 mg IM Q15MIN PRN PRN Reason: BG <70, and no IV access Clindamycin Phosphate 900 mg/ (IV Miscellaneous Supplies) 50 mls @ 50 mls/hr IV Q8HR SERA Stop: 02/15/25 13:59 Last Admin: 02/08/25 13:58 Dose: 50 mls/hr Piperacillin/Tazobactam/Dextrose (Zosyn) 3.375 gm in 50 mls @ 12.5 mls/hr IV Q8HR SERA Stop: 02/15/25 21:59 Vancomycin HCl 1,500 mg/ (Sodium Chloride) 500 mls @ 198 mls/hr IV X1 ONE Stop: 02/08/25 19:31 Insulin Human Lispro (Insulin Lispro (Admelog) 1 Unit/0.01 Ml Unit) 0 unit SC AC [facility]; Protocol Stop: 03/10/25 16:59 Morphine Sulfate (Morphine Sulf Inj 10 Mg/Ml Vial) 2 mg IVP Q2H PRN PRN Reason: BREAKTHROUGH PAIN Stop: 02/13/25 13:21 Ondansetron HCl (Ondansetron Inj 2 Mg/Ml Inj 2 Ml) 4 mg IV Q6H PRN; Protocol PRN Reason: NAUSEA OR VOMITING Stop: 03/10/25 13:21 Pharmacy Consult (Vancomycin Pharmacy To Dose 1 Each Each) 1 each IV QDAY [facility] Stop: 03/11/25 08:59 Sennosides (Senna Tablet) 1 tab PO QDAY [facility]; Protocol Stop: 03/11/25 08:59 Discontinued Medications Diltiazem HCl (Diltiazem Inj 5 Mg/Ml Vial 5 Ml) 20 mg IV X1 ONE Stop: 02/08/25 15:18 Last Admin: 02/08/25 15:26 Dose: 20 mg Piperacillin/Tazobactam/Dextrose (Zosyn) 3.375 gm in 50 mls @ 100 mls/hr IV X1 ONE Stop: 02/08/25 07:40 Last Infusion: 02/08/25 09:52 Dose: Infused Vancomycin/Sodium Chloride (Vancomycin/Ns 1 Gm Ivpb) 200 mls @ 120 mls/hr IV X1 ONE Stop: 02/08/25 08:54 Last Infusion: 02/08/25 13:01 Dose: Infused Sodium Chloride (Ns) 1,000 mls @ 200 mls/hr IV .Q5H ONE Stop: 02/08/25 14:16 Last Admin: 02/08/25 10:04 Dose: 200 mls/hr Sodium Chloride (Ns) 1,000 mls @ 999 mls/hr IV .Q1H1M ONE Stop: 02/08/25 13:56 Last Admin: 02/08/25 13:35 Dose: 999 mls/hr Sodium Chloride (Ns) 1,000 mls @ 999 mls/hr IV .Q1H1M ONE Stop: 02/08/25 13:57 Last Admin: 02/08/25 15:58 Dose: 999 mls/hr Sodium Chloride (Ns) 500 mls @ 999 mls/hr IV .Q31M ONE Stop: 02/08/25 13:52 Last Admin: 02/08/25 16:00 Dose: 999 mls/hr Doxycycline Hyclate 100 mg/ (Sodium Chloride) 100 mls @ 100 mls/hr IV BID [facility] Stop: 02/15/25 20:59 Piperacillin/Tazobactam/Dextrose (Zosyn) 50 mls @ 100 mls/hr IV Q6HR SERA Stop: 02/15/25 13:25 Insulin Human Lispro (Insulin Lispro (Admelog) 1 Unit/0.01 Ml Unit) 5 unit SC X1 ONE Stop: 02/08/25 09:18 Last Admin: 02/08/25 10:06 Dose: 5 unit Insulin Human Regular (Insulin Hum Regular 1 Unit/0.01 Ml (Per Unit)) 5 unit IV X1 ONE Stop: 02/08/25 09:18 Last Admin: 02/08/25 10:09 Dose: 5 unit Insulin Human Regular (Insulin Hum Regular 1 Unit/0.01 Ml (Per Unit)) 10 unit IV X1 ONE Stop: 02/08/25 12:56 Last Admin: 02/08/25 13:35 Dose: 10 unit Assessment & Plan Plan Ray is a 49 year old male with past medical history of diabetes mellitus (2022) non adherent to medication and history of meth use disorder. Patient admitted on 02/08/2025 for sepsis secondary to necrotizing fasciitis Neruo: #Methamphetamine Use Disorder Past medical history of Meth use disorder and tested positive on this admission. Stated last used 1 month ago. Half life of meth 6-15 hours. -may given Midazolam if need be -urine utox [facility] Stable Respiratory: Stable Renal: #Hyponatremia, Hypovolemic Hyponatremia likely in the setting of aggressive fluid resuscitation given sepsis secondary to necrotiizing Fasciitis, 4 Liters total. Given sepsis and soft blood pressure, no fluid restrictions for now. -monitor Na GI: stable Endo: #Hyperglycemia #Diabetes Mellitus Type II, non adherent On previous admission, A1c of 7.5 % in 07/2023 and patient deneid having any previous knowlege of diagnosis. Never had medication before. A1c on this admission >14.0%. ER 10 regular units and Lispro 5. -Glargine 5 units HS -Sliding Sclae -Lipid Panel -Carb Consistent Low Heme: Leukocytosis Secondary to sepsis, necrotiizing fasciitis ID: #Sepsis secondary to Necrotizing Fasciittis s/p #Necrotizing fasciitis #Osteomyelitis of 2nd and 3rd metatarsal #Lactic Acidosis, Resolved Patient arrived with with pyrexia, tachycardia, elevated WBC noted to have necrotizing fasciitis, given CT findings showing diffuse edema in the subcutaneous fatty tissue, abcess, and gas forming organsism. -Zosyn, Clindamyacin, and Vancomycin (02/08/2025) -Pending blood culture -pending wound culture during I&D -No Heparin -General Surgery Consulted, Dr. Coker, appreciate recommendations -Consider Infectious Disease Health Maintenance: Disp: Pt is currently admitted to floors for further management of Necrotiizing Fasciitis , awaiting blood culture FEN: Carb Consistent Low DVT: Compression Device, no heparin per Dr. Coker Bañuelos Catheter Code: DNR - The patient's plan was discussed with attending Dr. Diana Acevedo MD PGY1 Internal Medicine Attending Provider Attestation/Addendum Patient seen and examined with the resident, Aniya Acevedo MD. I agree with the findings, assessment, and plan of care as document except for any differences below. Patient with necrotizing fasciitis of the left lower extremity status post incision and drainage. Patient remains hemodynamically stable after 5 L of volume resuscitation between emergency department and the OR. Patient's mentation remains normal. Adequate urine output reported while in OR setting. Patient borderline blood pressure with potential need for vasopressor support. Patient reports that he is hungry. Significant history of methamphetamine use as well. Will follow-up culture data to further delineate antibiotic selection though this has been initiated by surgery and we will continue with multidrug regimen with adequate polymicrobial coverage. Appropriate prophylaxis to be initiated. Will follow-up with surgery daily for ongoing plan of care. Likely will be able to be downgraded from ICU in the next 24 to 48 hours for adequate source control. Total critical care time: I personally spent 35 minutes for review of physiologic parameters, direct the plan of care throughout the day, coordination of care with other specialties, and counseling patient at bedside. This is exclusive of time spent teaching housestaff performing any separate billable procedures. Patient continues require critical care services for severe sepsis secondary to necrotizing fasciitis. Patient remains at significant risk for further morbidity and mortality warranting close monitoring and care only available in the ICU.
[2025-02-08] MEDS: ACETAMINOPHEN IVPB 1,000 MG/100 ML VIAL 250 MG IV (18:10)
[2025-02-08 19:00] LABS: Alcohol, Urine Negative (Negative)
--- NOTE | 2025-02-08 19:50 | SUR.PHASEI ---
1950:Pt. AAOx4, pt. hypotensive, place pt. in [place] position, pt. asymptomatic, breathing unlabored, no complaint of pain or nausea, dressing to left leg now CDI, notified MD Coker that dressing was saturated, per MD Coker reinforce dressing. Dressing was reinforced. Bilateral popliteal pulses strong and regular, bilateral cap refill to feet less than 3 seconds, Pt. able to wiggle bilateral feet, report given to Rui MCLEOD made Rui aware of pt. BP. Pt. tolerated bites of jello well. Pt. transferred with all personal belongings.
[2025-02-08] MEDS: Vancomycin Inj 1,500 MG in SODIUM CHLORIDE 0.9% 500 ML 500 ML 198 MG IV (20:40)
[2025-02-08] MEDS: INSULIN GLARGINE (Lantus) 5 UNIT/0.05 ML (PER 5 UNITS) SC (21:13)
[2025-02-08] MEDS: POTASSIUM CHLORIDE 20 mEq TABCR PO (21:14)
[2025-02-09] VITALS (44 sets, daily range): BP systolic 78–134; BP diastolic 41–110; PULSE 79–112; RESP 3–33; TEMP 36.4–37.2; O2SAT 94–100; BMI 29.0
[2025-02-09] MEDS: HYDROcodone/APAP 5/325 TABLET 1 TAB PO ×2 (03:57→20:45)
[2025-02-09] MEDS: CLINDAMYCIN 900MG IVPB 900 MG in PRE-MIXED 1 BAG 50 MG IV ×3 (05:17→22:04)
[2025-02-09] MEDS: PIPER/TAZO 3.375 GM PREMIX 3.375 GM/50 ML BAG IV ×3 (05:17→22:08)
[2025-02-09 06:23] LABS: Basophils # (Auto) 0.2 Thou/mm3 (0.0-0.2); Basophils % (Auto) 1 % (0-2.5); Eosinophils # (Auto) 0.1 Thou/mm3 (0.0-0.5); Eosinophils % (Auto) 0 % (0-10); Hematocrit 24.2 % (41.0-53.0); Immature Granulocytes % (Auto) 4 % (0-0); Immature Granulocytes Auto 1.34 Thou/mm3 (0.00-0.00); Lymphocytes # (Auto) 1.9 Thou/mm3 (1.0-4.8); Lymphocytes % (Auto) 5 % (10-50); Mean Corpuscular HGB Conc 32.6 g/dl (31.0-37.0); Mean Corpuscular Hemoglobin 28.4 pg (25.0-35.0); Mean Corpuscular Volume 87 fL (80-100); Monocytes # (Auto) 1.7 Thou/mm3 (0.0-0.8); Monocytes % (Auto) 4 % (0-12); Neutrophils # (Auto) 32.7 Thou/mm3 (1.8-7.7); Neutrophils % (Auto) 86 % (37-80); Nucleated Red Blood Cell % 0 /100 WBC (0); Platelet Count 549 Thou/mm3 (140-440); RDW Standard Deviation 41.4 fL (35.1-43.9); Red Blood Count 2.78 Miln/mm3 (4.50-5.90)
[2025-02-09 06:42] LABS: Hemoglobin 7.9 g/dL (13.5-16.0); White Blood Count 37.9 Thou/mm3 (3.8-10.6)
[2025-02-09 07:39] LABS: Alanine Aminotransferase 58 U/L (10-49); Albumin, Serum 2.6 gm/dL (3.5-5.0); Albumin/Globulin Ratio 0.8 (1.2-2.2); Alkaline Phosphatase 242 U/L (46-116); Anion Gap 10 (7-16); Aspartate Amino Transferase 324 U/L (0-34); BUN/Creatinine Ratio 23 Ratio (12-20); Bilirubin,Total 0.3 mg/dL (0.3-1.2); Blood Urea Nitrogen 16 mg/dL (9-23); Calcium 7.4 mg/dL (8.3-10.6); Calcium (Corrected) 8.5 mg/dL (8.5-10.1); Carbon Dioxide 21.5 mMol/L (20.0-31.0); Chloride 99 mMol/L (98-107); Cholesterol 59 mg/dL (132-200); Creatinine (Component) 0.7 mg/dL (0.6-1.3); Estimated Creatinine Clearance 122.5 mL/min (>60); Globulin 3.1 gm/dL (2.3-3.5); Glucose 210 mg/dL (74-106); Magnesium 1.7 mg/dL (1.6-2.6); Osmolality,Calculated 268 (275-295); Phosphorous 3.5 mg/dL (2.4-5.1); Potassium 4.4 mMol/L (3.4-5.1); Sodium 130 mMol/L (136-145); Total Protein 5.7 gm/dL (5.7-8.2); Triglycerides 114 mg/dL (30-150); Vancomycin,Trough 15.5 mcg/mL (5.0-10.0); eGFR > 60 See Note
[2025-02-09 07:42] LABS: HDL Cholesterol < 10 mg/dL (40-60); LDL Cholesterol,Calculated 26 mg/dL (0-130)
[2025-02-09] MEDS: SENNA TABLET 1 TAB PO (08:25)
[2025-02-09] MEDS: INSULIN LISPRO (AdmeLOG) 1 UNIT/0.01 ML UNIT SC ×4 (08:26→20:48)
[2025-02-09 09:03] LABS: Path Review Blood Smear Sent to Pathologist
[2025-02-09 09:18] LABS: Hepatitis A Antibody IgM Non Reactive (Non React); Hepatitis B Core Antibody IgM Non Reactive (Non React); Hepatitis B Surface Antigen Non Reactive (Non React); Hepatitis C Antibody Non Reactive (Non React)
--- NOTE | 2025-02-09 09:49 | ESPR_ITS ---
Documentation for date of: 02/09/25 Subjective Subjective Interval history: 49-year-old male with no past medical history presented to ED due to left lower extremity swelling. Patient states about a month ago patient had a spider bite and leg started to swell up, however 1 week ago swelling became more drastic and the patient was unable to walk or bear weight on the affected limb. Pain is described as 9 out of 10 when putting pressure on the extremity. Patient also endorses having fevers and chills for about 2 days. Patient first noticed the possible spider bite 1 month ago, denied trauma to site. Initially on the dorsal foot that spread. Patient lives with his nephew noticed that he was unable to walk or bear weight and was brought to the ED. Of note per ED labs here patient is diabetic with an A1c of more than 14 however patient was unaware that he was diabetic. At this time patient denies chest pain, shortness of breath, abdominal pain, nausea, vomiting, diarrhea, recent sick contacts, recent travel. Patient denied IV drug use. Previous admission to the hospital for acute encephlopathy, concern for West Nile, but patient left AMA. General surgery was consulted and patient will be admitted for surgical intervention for necrotizing fasciitis. 02/09/2025: No overnight events. No pyrexia. No bowel movements overnight.Minimal urine output. Patient tested positive for methamphetamine, likelying coming off as he has spent most morning sleeping. Alert and Orientated X 3 and easy to arouse. This monring at bedside patient deneid pain, but recieved Amenia 5 at about 4 AM. Increased glargine from 5 HS to 10 HS as fasting glucose 210. LR bolus given this morning. S/P I&D on 02/08/2025 Diminished left pedal pulse, only popliteal noted to have strong pulse. Exam Vital Signs Temp Pulse Resp BP Pulse Ox O2 Del Method O2 Flow Rate 98.7 F 88 11 L 97/62 98 Room Air 2 02/09/25 04:00 02/09/25 06:00 02/09/25 06:00 02/09/25 06:00 02/09/25 06:00 02/09/25 04:00 02/08/25 17:26 Narrative Exam General Appearance: Alert & Oriented X3, well-nourished male who is lying in bed in no acute distress, and denied pain to left lower extremity. Left lower extremity warm, erythemtous extending from dorsal left foot to mid-tibial region. HEENT: Skull symmetrical and atraumatic. Conjunctivae pink and moist. Pupils equal, round, reactive to light and accommodation (PERRL). External ear without lesion or discharge. Straight, nares patient, mucosa pink, no discharge. Cardio: Normal Rate and Rhythm with S1 and S2 heart sounds. Murmur on left sternal region. No bruits on carotid auscultation. No peripheral edema or cyanosis. Lungs: Symmetric with good expansion. Chest and back non-tender. Breath sounds vesicular without crackles, wheezing or rhonchi Abdomen: Non-tender, Non-distended, Normal Reactive Bowel Sounds Neuro: Alert, cooperative, oriented to person, place, and time. Speech clear. CN grossly intact. Upper motor strength 5/5 and Lower motor strength 5/5. Sensation intact, to lower extremities. Decreased Pedal pulses. Popliteal pulse present on left. Objective Labs 02/10/25 05:09 02/10/25 05:09 Labs: Laboratory Results - last 24 hr 02/08/25 02/08/25 02/08/25 07:42 09:35 11:37 WBC RBC Hgb Hct MCV MCH MCHC RDW Std Deviation Plt Count Neut % (Auto) Lymph % (Auto) [place] % (Auto) Eos % (Auto) Baso % (Auto) Neut # (Auto) Lymph # (Auto) [place] # (Auto) Eos # (Auto) Baso # (Auto) Immature Gran # (Auto) Absolute Nucleated RBC Immature Gran % Nucleated RBC % Smear Path Review Sent to Pathologist Sodium Potassium Chloride Carbon Dioxide Anion Gap BUN Creatinine Estim Creat Clear Calc eGFR BUN/Creatinine Ratio Glucose Calculated Osmolality Lactic Acid 3.4 H Calcium Corrected Calcium Phosphorus Magnesium Total Bilirubin AST ALT Alkaline Phosphatase Total Creatine Kinase Total Protein Albumin Globulin Albumin/Globulin Ratio Triglycerides Cholesterol LDL Cholesterol, Calc HDL Cholesterol Cholesterol/HDL Ratio Vancomycin Trough Urine Opiates Screen Negative Urine Fentanyl Screen Negative Ur Barbiturates Screen Negative U Amphetamin/Meth Scrn Positive A U Benzodiazepines Scrn Negative U Cocaine Metab Screen Negative U Marijuana (THC) Screen Negative Urine Alcohol Negative Hepatitis A IgM Ab Hep Bs Antigen Hep B Core IgM Ab Hepatitis C Antibody 02/08/25 02/09/25 13:18 04:30 WBC 37.9 H* RBC 2.78 L Hgb 7.9 L Hct 24.2 L MCV 87 MCH 28.4 MCHC 32.6 RDW Std Deviation 41.4 Plt Count 549 H Neut % (Auto) 86 H Lymph % (Auto) 5 L [place] % (Auto) 4 Eos % (Auto) 0 Baso % (Auto) 1 Neut # (Auto) 32.7 H Lymph # (Auto) 1.9 [place] # (Auto) 1.7 H Eos # (Auto) 0.1 Baso # (Auto) 0.2 Immature Gran # (Auto) 1.34 H Absolute Nucleated RBC 0.00 Immature Gran % 4 H Nucleated RBC % 0 Smear Path Review Sent to Pathologist Sodium 122 L 130 L Potassium 3.8 4.4 D Chloride 92 L 99 Carbon Dioxide 25.1 21.5 Anion Gap 5 L 10 BUN 13 16 Creatinine 0.8 0.7 Estim Creat Clear Calc 110.1 122.5 eGFR > 60 > 60 BUN/Creatinine Ratio 16 23 H Glucose 228 H D 210 H Calculated Osmolality 253 L 268 L Lactic Acid 1.8 Calcium 8.2 L 7.4 L Corrected Calcium 9.1 8.5 Phosphorus 3.0 3.5 Magnesium 1.7 Total Bilirubin 0.3 AST 324 H ALT 58 H Alkaline Phosphatase 242 H Total Creatine Kinase 29 L Total Protein 5.7 Albumin 2.9 L 2.6 L Globulin 3.1 Albumin/Globulin Ratio 0.8 L Triglycerides 114 Cholesterol 59 L LDL Cholesterol, Calc 26 HDL Cholesterol < 10 L Cholesterol/HDL Ratio 5.0 Vancomycin Trough 15.5 H Urine Opiates Screen Urine Fentanyl Screen Ur Barbiturates Screen U Amphetamin/Meth Scrn U Benzodiazepines Scrn U Cocaine Metab Screen U Marijuana (THC) Screen Urine Alcohol Hepatitis A IgM Ab Non Reactive Hep Bs Antigen Non Reactive Hep B Core IgM Ab Non Reactive Hepatitis C Antibody Non Reactive Quality Measures Quality Measures sepsis Current suspected stage: sepsis Possible source: skin/soft tissue (and bone) Blood cultures ordered: yes Antibiotic ordered: Yes Assessment & Plan Assessment Current Active Medications: Generic Name Dose Route Start Last Admin Trade Name Freq PRN Reason Stop Dose Admin Acetaminophen 650 mg 02/08/25 13:22 Acetaminophen 325 Mg Tablet PO 03/10/25 13:21 Q6H PRN Fever >99.5 Acetaminophen 650 mg 02/08/25 13:22 Acetaminophen 325 Mg Tablet PO 03/10/25 13:21 Q6H PRN PAIN SCALE 1-3 (mild Hydrocodone Bitart/Acetaminophen 1 tab 02/08/25 13:22 02/09/25 03:57 Hydrocodone/Apap 5/325 Tablet PO 02/13/25 13:21 1 tab Q4HR PRN Administration PAIN SCALE 4-10(Mod-Sev Atorvastatin Calcium 20 mg 02/09/25 21:00 Atorvastatin Calcium 20 Mg Tablet PO 03/11/25 20:59 HS SERA Dextrose 25 ml 02/08/25 14:06 Dextrose 50%-Water Inj 50 Ml Syringe IV 03/10/25 14:05 Q15MIN PRN BG 50-70 responsive npo pt Dextrose 50 ml 02/08/25 14:06 Dextrose 50%-Water Inj 50 Ml Syringe IV 03/10/25 14:05 Q15MIN PRN BG <50 OR BG <70 & pt unresponsive Glucagon 1 mg 02/08/25 14:06 Glucagon Inj 1 Mg Vial IM Q15MIN PRN BG <70, and no IV access Clindamycin Phosphate 900 mg/ 50 mls @ 50 mls/hr 02/08/25 14:00 02/09/25 05:17 IV Miscellaneous Supplies IV 02/15/25 13:59 50 mls/hr Q8HR SERA Administration Piperacillin/Tazobactam/Dextrose 3.375 gm in 50 mls @ 12.5 mls/hr 02/08/25 19:45 02/09/25 05:17 Zosyn IV 02/15/25 19:44 12.5 mls/hr Q8HR SERA Administration Norepinephrine/Dextrose 8 mg in 250 mls @ 7.654 mls/hr 02/08/25 20:11 Levophed In D5w 8mg/250ml IV 03/10/25 20:10 .Q24H PRN PER PROTOCOL Protocol 0.05 MCG/KG/MIN Vancomycin HCl/Dextrose 250 mls @ 120 mls/hr 02/09/25 10:00 Vancomycin/D5w 1,250 Mg Ivpb IV 02/16/25 09:59 BID@1000,2200 SERA Protocol Lactated Ringer's 1,000 mls @ 999 mls/hr 02/09/25 09:43 Lactated Ringers IV 02/09/25 10:43 .Q1H1M ONE Magnesium Sulfate 2 gm in 50 mls @ 25 mls/hr 02/09/25 09:48 Magnesium Sulfate Ivpb IV 02/09/25 11:47 X1 ONE Insulin Glargine 10 unit 02/09/25 21:00 Insulin Glargine (Lantus) 5 Unit/0.05 Ml (Per 5 Units) SC 03/11/25 20:59 HS [facility] Insulin Human Lispro 0 unit 02/08/25 17:00 02/09/25 08:26 Insulin Lispro (Admelog) 1 Unit/0.01 Ml Unit SC 03/10/25 16:59 3 unit AC [facility] Administration Protocol Morphine Sulfate 2 mg 02/08/25 13:22 Morphine Sulf Inj 10 Mg/Ml Vial IVP 02/13/25 13:21 Q2H PRN BREAKTHROUGH PAIN Ondansetron HCl 4 mg 02/08/25 13:22 Ondansetron Inj 2 Mg/Ml Inj 2 Ml IV 03/10/25 13:21 Q6H PRN NAUSEA OR VOMITING Protocol Pharmacy Consult 1 each 02/09/25 09:00 Vancomycin Pharmacy To Dose 1 Each Each IV 03/11/25 08:59 QDAY PRN PROTOCOL Sennosides 1 tab 02/09/25 09:00 02/09/25 08:25 Senna Tablet PO 03/11/25 08:59 1 tab QDAY [facility] Administration Protocol Plan Ray is a 49 year old male with past medical history of diabetes mellitus (2022) non adherent to medication and history of meth use disorder. Patient admitted on 02/08/2025 for sepsis secondary to necrotizing fasciitis Neruo: #Methamphetamine Use Disorder Past medical history of Meth use disorder and tested positive on this admission. Stated last used 1 month ago. Half life of meth 6-15 hours. -may given Midazolam if need be [facility] Stable Respiratory: Stable Renal: #Hyponatremia, Hypovolemic, improved Hyponatremia likely in the setting of aggressive fluid resuscitation given sepsis secondary to necrotiizing Fasciitis, 4 Liters total. Given sepsis and soft blood pressure, no fluid restrictions for now. -monitor Na -LR bolus X1 (02/09/2025) GI: stable Endo: #Hyperglycemia #Diabetes Mellitus Type II, non adherent On previous admission, A1c of 7.5 % in 07/2023 and patient deneid having any previous knowlege of diagnosis. Never had medication before. A1c on this admission >14.0%. ER 10 regular units and Lispro 5. -Glargine 5 units HS -Sliding Sclae -Lipid Panel -Carb Consistent Low Heme: Leukocytosis Secondary to sepsis, necrotizing fasciitis and likely reactive s/p I&D. ID: #Sepsis secondary to Necrotizing Fasciittis s/p #Necrotizing fasciitis #Osteomyelitis of 2nd and 3rd metatarsal #Lactic Acidosis, Resolved Patient arrived with with pyrexia, tachycardia, elevated WBC meeting SIRs criteria and CT noted for edema in the subcutaneous fatty tissue, abscess, and gas forming, concern for necrotizing fasciitis. Safe to resume heparin. No MRI for osteomyelitis planned for now. -Day 2, Zosyn, Clindamyacin, and Vancomycin (02/08/2025-) -Blood Culture Negative after 48 Hours -Abscess culture during I&D-mixed, pending final results. -General Surgery Consulted, Dr. Coker, appreciate recommendations -Consider Infectious Disease for osteomyeliits. Health Maintenance: Disp: Pt is currently admitted to floors for further management of Necrotiizing Fasciitis , awaiting blood culture FEN: Carb Consistent Low DVT: Resume Heparin NO Bañuelos Code: DNR - The patient's plan was discussed with attending Dr. Diana Acevedo MD PGY1 Internal Medicine Attending Provider Attestation/Addendum Patient seen and examined with above resident, Aniya Acevedo MD. I agree with the findings, assessment, and plan of care as documented except for any differences below. Patient remains hemodynamically stable without requirement for vasopressors postoperatively. Patient adequately volume resuscitated. He is tolerating PO. Patient with no significant plaints at this point. Will coordinate with surgical staff on ongoing plan of care. Remains on empiric antibiotics awaiting culture data to help narrow spectrum as able. Patient will be transferred back to medicine [place] for ongoing management. Total critical care time: I personally spent 30 minutes for review of physiologic parameters, directing plan of care throughout the day, coordination of care with other specialists, and counseling patient at bedside. This is exclusive of time spent teaching housestaff or performing any separate billable procedures. Patient remains at significant risk for further morbidity and mortality warranting close monitoring and care only available in the intensive care unit. Patient receiving critical care services for severe sepsis secondary to cellulitis/osteomyelitis of the left lower extremity.
[2025-02-09] MEDS: RINGERS LACTATED 1000 ML 1,000 ML 999 ML IV (11:16)
[2025-02-09] MEDS: VANCOMYCIN/D5W 1,250 MG IVPB 250 ML 120 MG IV ×2 (11:16→22:48)
[2025-02-09] MEDS: Magnesium Sulfate 2 GM Ivpb 2 GM/50 ML BAG IV (11:16)
--- NOTE | 2025-02-09 11:27 | PD.SURPROG ---
Documentation for date of: 02/09/25 Subjective Subjective Narrative: Patient is seen and examined in ICU. He is resting, pain is controlled Exam Vital Signs Temp Pulse Resp BP Pulse Ox O2 Del Method O2 Flow Rate 98.1 F 98 25 H 123/85 H 98 Room Air 2 02/09/25 08:00 02/09/25 11:00 02/09/25 11:00 02/09/25 11:00 02/09/25 11:00 02/09/25 04:00 02/08/25 17:26 Constitutional Constitutional: no acute distress Routine Extremities Exam Comments: Significant cellulitis with purulent fluid emanating from the wounds Assessment & Plan Assessment Additional comments: Postop day #1 status post incision and drainage of left leg abscess. He has significant infection without evidence of necrotizing fasciitis Plan Continue IV antibiotics. Wound care as directed Procedures Procedures Incision and drainage of left leg abscess
[2025-02-09] MEDS: ACETAMINOPHEN 325 MG TABLET 650 MG PO (15:35)
--- NOTE | 2025-02-09 15:43 | PC.SS ---
CENTRIFUGAL STATION OPERATOR conducted bedside contact with the patient conduct initial assessment and to discuss discharge planning.? Patient confirmed demographic information.? Patient resides at home with family.? Patient reports not utilizing any form of DME to assist with ambulation prior to admission.? Patient does not utilize home oxygen.? Patient describes the ability to complete ADL?s independently.? Patient identified Toñito Ewdards, ; as medical surrogate decision maker.? Patient is not aligned with PCP services.? Patient receptive to scheduling appointment with [facility] upon discharge.? Patient does not participate with dialysis.? Patient does not possess any specialty providers.? Plan is for the patient to return home at the time of discharge.? Family will provide transportation on behalf of the patient. ?No further discharge needs identified by the patient.? No further intervention required at this time, social sciences research scientist will be available to address any further concerns.? Next of Kin: Toñito Edwards D/C Plan: Home
--- NOTE | 2025-02-09 15:45 | PC.SS ---
Toñito Edwards, uncle; [phone].
--- NOTE | 2025-02-09 16:10 | PD.RESPRO ---
Documentation for date of: 02/09/25 Subjective Subjective Interval history: Downgraded by ICU team. Patient seen today at the bedside found awake, alert, oriented x 3. Vital signs and labs reviewed. Wants to eat, diet already ordered. Patient is status post incision and drainage of a left leg abscess. States pain is adequately controlled at this time. On Barre 5s for pain control and morphine for breakthrough pain. Exam Vital Signs Temp Pulse Resp BP Pulse Ox O2 Del Method O2 Flow Rate 99.0 F 112 H 6 L 112/69 94 L Room Air 2 02/09/25 12:02 02/09/25 15:00 02/09/25 15:00 02/09/25 15:00 02/09/25 15:00 02/09/25 04:00 02/08/25 17:26 Narrative Exam Physical Exam GENERAL: NAD, AAOx3 HEENT: Moist mucosa. Eyes open, symmetrical, & clear CARDIO: Heart RRR, no obvious murmurs PULM: No noted coughing/dyspnea CTA B/L, no R/W/R GI: Abdomen soft, nondistended, no pain on palpation. BS+ SKIN/MSK/EXT: LLE covered post-op, diminished pulses on LLE NEURO: AAOx3, no focal neuro deficits, able to move all 4 extremities Objective Labs 02/10/25 05:09 02/10/25 05:09 Labs: Laboratory Results - last 24 hr 02/08/25 02/08/25 02/09/25 09:35 13:18 04:30 WBC 37.9 H* RBC 2.78 L Hgb 7.9 L Hct 24.2 L MCV 87 MCH 28.4 MCHC 32.6 RDW Std Deviation 41.4 Plt Count 549 H Neut % (Auto) 86 H Lymph % (Auto) 5 L [place] % (Auto) 4 Eos % (Auto) 0 Baso % (Auto) 1 Neut # (Auto) 32.7 H Lymph # (Auto) 1.9 [place] # (Auto) 1.7 H Eos # (Auto) 0.1 Baso # (Auto) 0.2 Immature Gran # (Auto) 1.34 H Absolute Nucleated RBC 0.00 Immature Gran % 4 H Nucleated RBC % 0 Smear Path Review Sent to Pathologist Sodium 130 L Potassium 4.4 D Chloride 99 Carbon Dioxide 21.5 Anion Gap 10 BUN 16 Creatinine 0.7 Estim Creat Clear Calc 122.5 eGFR > 60 BUN/Creatinine Ratio 23 H Glucose 210 H Calculated Osmolality 268 L Calcium 7.4 L Corrected Calcium 8.5 Phosphorus 3.5 Magnesium 1.7 Total Bilirubin 0.3 AST 324 H ALT 58 H Alkaline Phosphatase 242 H Total Creatine Kinase 29 L Total Protein 5.7 Albumin 2.6 L Globulin 3.1 Albumin/Globulin Ratio 0.8 L Triglycerides 114 Cholesterol 59 L LDL Cholesterol, Calc 26 HDL Cholesterol < 10 L Cholesterol/HDL Ratio 5.0 Vancomycin Trough 15.5 H Urine Alcohol Negative Hepatitis A IgM Ab Non Reactive Hep Bs Antigen Non Reactive Hep B Core IgM Ab Non Reactive Hepatitis C Antibody Non Reactive Quality Measures Quality Measures sepsis Current suspected stage: ruled out Possible source: skin/soft tissue (and bone) Blood cultures ordered: yes Antibiotic ordered: Yes Assessment & Plan Assessment Current Active Medications: Generic Name Dose Route Start Last Admin Trade Name Freq PRN Reason Stop Dose Admin Acetaminophen 650 mg 02/09/25 10:50 02/09/25 15:35 Acetaminophen 325 Mg Tablet PO 03/10/25 13:21 650 mg Q6H PRN Administration Pain Scale 1-3 or Fever >100.3 Hydrocodone Bitart/Acetaminophen 1 tab 02/08/25 13:22 02/09/25 03:57 Hydrocodone/Apap 5/325 Tablet PO 02/13/25 13:21 1 tab Q4HR PRN Administration PAIN SCALE 4-10(Mod-Sev Atorvastatin Calcium 20 mg 02/09/25 21:00 Atorvastatin Calcium 20 Mg Tablet PO 03/11/25 20:59 HS SERA Dextrose 25 ml 02/08/25 14:06 Dextrose 50%-Water Inj 50 Ml Syringe IV 03/10/25 14:05 Q15MIN PRN BG 50-70 responsive npo pt Dextrose 50 ml 02/08/25 14:06 Dextrose 50%-Water Inj 50 Ml Syringe IV 03/10/25 14:05 Q15MIN PRN BG <50 OR BG <70 & pt unresponsive Glucagon 1 mg 02/08/25 14:06 Glucagon Inj 1 Mg Vial IM Q15MIN PRN BG <70, and no IV access Heparin Sodium (Porcine) 5,000 unit 02/09/25 21:00 Heparin Sod Inj 5000 Unit/Ml Vial SC 02/23/25 20:59 Q12HR SERA Clindamycin Phosphate 900 mg/ 50 mls @ 50 mls/hr 02/08/25 14:00 02/09/25 15:14 IV Miscellaneous Supplies IV 02/15/25 13:59 50 mls/hr Q8HR SERA Administration Piperacillin/Tazobactam/Dextrose 3.375 gm in 50 mls @ 12.5 mls/hr 02/08/25 19:45 02/09/25 15:14 Zosyn IV 02/15/25 19:44 12.5 mls/hr Q8HR SERA Administration Vancomycin HCl/Dextrose 250 mls @ 120 mls/hr 02/09/25 10:00 02/09/25 11:16 Vancomycin/D5w 1,250 Mg Ivpb IV 02/16/25 09:59 120 mls/hr BID@1000,2200 SERA Administration Protocol Insulin Glargine 10 unit 02/09/25 21:00 Insulin Glargine (Lantus) 5 Unit/0.05 Ml (Per 5 Units) SC 03/11/25 20:59 HS SERA Insulin Human Lispro 0 unit 02/09/25 11:30 02/09/25 11:18 Insulin Lispro (Admelog) 1 Unit/0.01 Ml Unit SC 03/11/25 11:29 2 unit ACHS SERA Administration Protocol Morphine Sulfate 2 mg 02/08/25 13:22 Morphine Sulf Inj 10 Mg/Ml Vial IVP 02/13/25 13:21 Q2H PRN BREAKTHROUGH PAIN Ondansetron HCl 4 mg 02/08/25 13:22 Ondansetron Inj 2 Mg/Ml Inj 2 Ml IV 03/10/25 13:21 Q6H PRN NAUSEA OR VOMITING Protocol Pharmacy Consult 1 each 02/09/25 09:00 Vancomycin Pharmacy To Dose 1 Each Each IV 03/11/25 08:59 QDAY PRN PROTOCOL Sennosides 1 tab 02/09/25 09:00 02/09/25 08:25 Senna Tablet PO 03/11/25 08:59 1 tab QDAY [facility] Administration Protocol Plan 49-year-old male with no past medical history who presented to the ED with left lower extremity extremity unable to bear weight. Was admitted for necrotizing fasciitis, general surgery was consulted will be taken to the operating room. #Cellulitis and abscess of left leg s/p Incision and drainage of left leg abscess #Osteomyelitis of 2nd and 3rd metatarsal #Lactic acidosis?resolved #Leukocytosis On presentation vitals significant for tachycardia, tachypnea, febrile, leukocytosis with source being left lower extremity with necrotizing fasciitis/osteomyelitis Patient with left lower extremity swelling symptoms onset about 1 week Patient does state that he noted a spider bite about a month ago Foot x-ray shows osteomyelitis on 2nd and 3rd metatarsals, positive foreign body in soft tissue first digit No concern for DVT as ultrasound was negative Lower extremity CT showed soft tissue abscess with gas-forming organisms in the soft tissue anterior lateral of the mid and lower tibia extending to the ankle LRINEC score: 7 Blood cultures negative in 24hours Leukocytosis likely secondary to acute infection and recent OR procedure ? General Surgery consulted, appreciate recommendations ? On clindamycin (02/08/2025-) ? On vancomycin (02/08/2025- ? on zosyn (02/08/2025- ? pending abcess culture ? Consider ID consult ? Pain medications on board ? wound care on board #Hyponatremia, hypovolemic-improving likely in the setting of aggressive IV hydration, was given total 4L - Monitor CMP #Methamphetamine Use Disorder Past medical history of Meth use disorder and tested positive on this admission. Last used 1 month ago. Half life of meth 6-15 hours. -may given Midazolam if signs of withdrawal #Newly diagnosed diabetes A1c stopped registering after >14 Patient was unaware that he was diabetic ? SSI ? glargine 10u ? carb consistent low ? Hypoglycemia protocol in place ? Registered dietitian referral sent Disposition: tele Fluids: none Feeding: carb consistent low Thrombo prophylaxis: heparin Gastric Ulcer prophylaxis: none CODE STATUS: DNR Case discussed with my senior Dr. Somers and my attending Dr. Dejon Laguna MD PGY-1 Attending Provider Attestation/Addendum 49-year-old male with unknown previous medical history who presented with left lower extremity swelling found to have uncontrolled hyperglycemia and internal medicine was consulted for sepsis. Upon evaluation, patient to have gas-forming changes on the CT for which there is a concern for necrotizing fasciitis and subsequently general surgery was consulted and plan for emergent surgical intervention. In addition, patient also noted to have uncontrolled hyperglycemia for which we will start patient on insulin. Of note, patient is requesting to be DNR and despite multiple counseling stated that understands that DNR means do not necessitate and I personally explained to him that if his heart was to stop this means that were unable to revive him and he will pass away for which patient understands and verbalized understanding. Continues to want to be DNR/DNI for which we will respect his decision. As of now, patient underwent surgical intervention and downgraded after he was upgraded to ICU for close monitoring. As of now, plan to continue vancomycin, Zosyn and clindamycin pending cultures and appreciate general surgery input. I have also personally examined the patient with medicine team and went over assessment and plan with medical team including investigator internal affairs and resident physician.
[2025-02-09] MEDS: ATORVASTATIN CALCIUM 20 MG TABLET PO (20:45)
[2025-02-09] MEDS: INSULIN GLARGINE (Lantus) 5 UNIT/0.05 ML (PER 5 UNITS) 10 UNIT SC (20:49)
[2025-02-09] MEDS: HEPARIN SOD INJ 5000 UNIT/ML VIAL SC (20:51)
--- NOTE | 2025-02-09 21:00 | PC.NURSE ---
ATTEMPTED TO ELEVATE LEFT LEG WITH PILLOWS ORDERED TO DECREASE SWELLING,BUT PATIENT REFUSED.
[2025-02-09] MEDS: MORPHINE SULF INJ 10 MG/ML VIAL 2 MG IVP (22:02)
[2025-02-09 22:08] LABS: Vancomycin,Trough 10.3 mcg/mL (5.0-10.0)
[2025-02-10] VITALS (11 sets, daily range): BP systolic 86–134; BP diastolic 60–78; PULSE 69–115; RESP 18–22; TEMP 36.5–39.4; O2SAT 92–96; BMI 32.2
[2025-02-10] MEDS: HYDROcodone/APAP 5/325 TABLET 1 TAB PO ×3 (01:32→21:01)
[2025-02-10] MEDS: MORPHINE SULF INJ 10 MG/ML VIAL 2 MG IVP ×2 (02:35→12:18)
[2025-02-10] MEDS: CLINDAMYCIN 900MG IVPB 900 MG in PRE-MIXED 1 BAG 50 MG IV (05:20)
[2025-02-10] MEDS: PIPER/TAZO 3.375 GM PREMIX 3.375 GM/50 ML BAG IV ×3 (05:20→22:35)
[2025-02-10 06:26] LABS: Basophils # (Auto) 0.1 Thou/mm3 (0.0-0.2); Basophils % (Auto) 0 % (0-2.5); Eosinophils # (Auto) 0.2 Thou/mm3 (0.0-0.5); Eosinophils % (Auto) 1 % (0-10); Hematocrit 22.2 % (41.0-53.0); Immature Granulocytes % (Auto) 4 % (0-0); Immature Granulocytes Auto 1.21 Thou/mm3 (0.00-0.00); Lymphocytes # (Auto) 2.5 Thou/mm3 (1.0-4.8); Lymphocytes % (Auto) 8 % (10-50); Mean Corpuscular HGB Conc 33.3 g/dl (31.0-37.0); Mean Corpuscular Hemoglobin 28.4 pg (25.0-35.0); Mean Corpuscular Volume 85 fL (80-100); Monocytes # (Auto) 1.3 Thou/mm3 (0.0-0.8); Monocytes % (Auto) 4 % (0-12); Neutrophils # (Auto) 24.7 Thou/mm3 (1.8-7.7); Neutrophils % (Auto) 82 % (37-80); Nucleated Red Blood Cell % 0 /100 WBC (0); Platelet Count 472 Thou/mm3 (140-440); RDW Standard Deviation 41.6 fL (35.1-43.9); Red Blood Count 2.61 Miln/mm3 (4.50-5.90)
[2025-02-10 06:31] LABS: Hemoglobin 7.4 g/dL (13.5-16.0)
[2025-02-10 06:58] LABS: Alanine Aminotransferase 41 U/L (10-49); Albumin, Serum 2.5 gm/dL (3.5-5.0); Albumin/Globulin Ratio 0.8 (1.2-2.2); Alkaline Phosphatase 248 U/L (46-116); Anion Gap 5 (7-16); Aspartate Amino Transferase 107 U/L (0-34); BUN/Creatinine Ratio 21 Ratio (12-20); Bilirubin,Total 0.2 mg/dL (0.3-1.2); Blood Urea Nitrogen 17 mg/dL (9-23); Calcium 7.3 mg/dL (8.3-10.6); Calcium (Corrected) 8.5 mg/dL (8.5-10.1); Chloride 98 mMol/L (98-107); Creatinine (Component) 0.8 mg/dL (0.6-1.3); Estimated Creatinine Clearance 112.7 mL/min (>60); Globulin 3.2 gm/dL (2.3-3.5); Glucose 192 mg/dL (74-106); Magnesium 1.7 mg/dL (1.6-2.6); Osmolality,Calculated 261 (275-295); Phosphorous 2.8 mg/dL (2.4-5.1); Sodium 127 mMol/L (136-145); Total Protein 5.7 gm/dL (5.7-8.2); eGFR > 60 See Note
[2025-02-10] MEDS: INSULIN LISPRO (AdmeLOG) 1 UNIT/0.01 ML UNIT SC ×4 (07:47→21:04)
[2025-02-10] MEDS: SENNA TABLET 1 TAB PO (08:26)
[2025-02-10] MEDS: HEPARIN SOD INJ 5000 UNIT/ML VIAL SC ×2 (08:26→21:07)
[2025-02-10] MEDS: VANCOMYCIN/D5W 1,250 MG IVPB 250 ML 120 MG IV ×2 (10:32→22:35)
--- NOTE | 2025-02-10 11:44 | ESPR_ITS ---
Documentation for date of: 02/10/25 Subjective Subjective Interval history: Patient seen today at the bedside found awake, alert, orientedx3. No overnight events reported. Pain is adequately controlled at this time. Vital signs and labs reviewed. Blood sugars elevated today, adjusted insulin regimen to 15units glargine and 2 lispro. Infectious disease was consulted as patient has osteomyelitis of 2nd and 3rd metatarsal, will await further recommendations Exam Vital Signs Temp Pulse Resp BP Pulse Ox O2 Del Method O2 Flow Rate 97.7 F 74 22 H 100/61 95 Room Air 2 02/10/25 11:19 02/10/25 11:19 02/10/25 11:19 02/10/25 11:19 02/10/25 11:19 02/10/25 11:19 02/10/25 08:00 Narrative Exam Physical Exam GENERAL: NAD, AAOx3 HEENT: Moist mucosa. Eyes open, symmetrical, & clear CARDIO: Heart RRR, no obvious murmurs PULM: No noted coughing/dyspnea CTA B/L, no R/W/R GI: Abdomen soft, nondistended, no pain on palpation. BS+ SKIN/MSK/EXT: LLE covered post-op, diminished pulses on LLE NEURO: AAOx3, no focal neuro deficits, able to move all 4 extremities Objective Labs 02/10/25 05:09 02/10/25 05:09 Labs: Laboratory Results - last 24 hr 02/09/25 02/10/25 21:18 05:09 WBC 30.0 H D RBC 2.61 L Hgb 7.4 L Hct 22.2 L MCV 85 MCH 28.4 MCHC 33.3 RDW Std Deviation 41.6 Plt Count 472 H D Neut % (Auto) 82 H Lymph % (Auto) 8 L [place] % (Auto) 4 Eos % (Auto) 1 Baso % (Auto) 0 Neut # (Auto) 24.7 H Lymph # (Auto) 2.5 [place] # (Auto) 1.3 H Eos # (Auto) 0.2 Baso # (Auto) 0.1 Immature Gran # (Auto) 1.21 H Absolute Nucleated RBC 0.00 Immature Gran % 4 H Nucleated RBC % 0 Sodium 127 L Potassium 4.0 Chloride 98 Carbon Dioxide 24.0 Anion Gap 5 L BUN 17 Creatinine 0.8 Estim Creat Clear Calc 112.7 eGFR > 60 BUN/Creatinine Ratio 21 H Glucose 192 H Calculated Osmolality 261 L Calcium 7.3 L Corrected Calcium 8.5 Phosphorus 2.8 Magnesium 1.7 Total Bilirubin 0.2 L AST 107 H ALT 41 Alkaline Phosphatase 248 H Total Protein 5.7 Albumin 2.5 L Globulin 3.2 Albumin/Globulin Ratio 0.8 L Vancomycin Trough 10.3 H Quality Measures Quality Measures sepsis Current suspected stage: sepsis Possible source: skin/soft tissue (and bone) Blood cultures ordered: yes Antibiotic ordered: Yes Assessment & Plan Assessment Current Active Medications: Generic Name Dose Route Start Last Admin Trade Name Freq PRN Reason Stop Dose Admin Acetaminophen 650 mg 02/09/25 10:50 02/09/25 15:35 Acetaminophen 325 Mg Tablet PO 03/10/25 13:21 650 mg Q6H PRN Administration Pain Scale 1-3 or Fever >100.3 Hydrocodone Bitart/Acetaminophen 1 tab 02/08/25 13:22 02/10/25 06:38 Hydrocodone/Apap 5/325 Tablet PO 02/13/25 13:21 1 tab Q4HR PRN Administration PAIN SCALE 4-10(Mod-Sev Atorvastatin Calcium 20 mg 02/09/25 21:00 02/09/25 20:45 Atorvastatin Calcium 20 Mg Tablet PO 03/11/25 20:59 20 mg HS SERA Administration Dextrose 25 ml 02/08/25 14:06 Dextrose 50%-Water Inj 50 Ml Syringe IV 03/10/25 14:05 Q15MIN PRN BG 50-70 responsive npo pt Dextrose 50 ml 02/08/25 14:06 Dextrose 50%-Water Inj 50 Ml Syringe IV 03/10/25 14:05 Q15MIN PRN BG <50 OR BG <70 & pt unresponsive Glucagon 1 mg 02/08/25 14:06 Glucagon Inj 1 Mg Vial IM Q15MIN PRN BG <70, and no IV access Heparin Sodium (Porcine) 5,000 unit 02/09/25 21:00 02/10/25 08:26 Heparin Sod Inj 5000 Unit/Ml Vial SC 02/23/25 20:59 5,000 unit Q12HR SERA Administration Piperacillin/Tazobactam/Dextrose 3.375 gm in 50 mls @ 12.5 mls/hr 02/08/25 19:45 02/10/25 05:20 Zosyn IV 02/15/25 19:44 12.5 mls/hr Q8HR SERA Administration Vancomycin HCl/Dextrose 250 mls @ 120 mls/hr 02/10/25 11:00 02/10/25 10:32 Vancomycin/D5w 1,250 Mg Ivpb IV 02/17/25 10:59 120 mls/hr Q8HR SERA Administration Protocol Insulin Glargine 10 unit 02/09/25 21:00 02/09/25 20:49 Insulin Glargine (Lantus) 5 Unit/0.05 Ml (Per 5 Units) SC 03/11/25 20:59 10 unit HS SERA Administration Insulin Human Lispro 0 unit 02/09/25 11:30 02/10/25 07:47 Insulin Lispro (Admelog) 1 Unit/0.01 Ml Unit SC 03/11/25 11:29 2 unit ACHS SERA Administration Protocol Morphine Sulfate 2 mg 02/08/25 13:22 02/10/25 02:35 Morphine Sulf Inj 10 Mg/Ml Vial IVP 02/13/25 13:21 2 mg Q2H PRN Administration BREAKTHROUGH PAIN Ondansetron HCl 4 mg 02/08/25 13:22 Ondansetron Inj 2 Mg/Ml Inj 2 Ml IV 03/10/25 13:21 Q6H PRN NAUSEA OR VOMITING Protocol Pharmacy Consult 1 each 02/09/25 09:00 Vancomycin Pharmacy To Dose 1 Each Each IV 03/11/25 08:59 QDAY PRN PROTOCOL Sennosides 1 tab 02/09/25 09:00 02/10/25 08:26 Senna Tablet PO 03/11/25 08:59 1 tab QDAY SERA Administration Protocol Plan 49-year-old male with no past medical history who presented to the ED with left lower extremity extremity unable to bear weight. Was admitted for necrotizing fasciitis, general surgery was consulted will be taken to the operating room. #Cellulitis and abscess of left leg s/p Incision and drainage of left leg abscess #Osteomyelitis of 2nd and 3rd metatarsal #Lactic acidosis?resolved #Leukocytosis On presentation vitals significant for tachycardia, tachypnea, febrile, leukocytosis with source being left lower extremity with necrotizing fasciitis/osteomyelitis Patient with left lower extremity swelling symptoms onset about 1 week Patient does state that he noted a spider bite about a month ago Foot x-ray shows osteomyelitis on 2nd and 3rd metatarsals, positive foreign body in soft tissue first digit No concern for DVT as ultrasound was negative Lower extremity CT showed soft tissue abscess with gas-forming organisms in the soft tissue anterior lateral of the mid and lower tibia extending to the ankle LRINEC score: 7 Blood cultures negative in 24hours Leukocytosis likely secondary to acute infection and recent OR procedure ? General Surgery consulted, appreciate recommendations ? OFF clindamycin (02/08/2025-02/10/2025) ? On vancomycin (02/08/2025- ? on zosyn (02/08/2025- ? pending abcess culture ? ID consult, appreciate reccs ? Pain medications on board ? wound care on board #Hyponatremia, hypovolemic-improving likely in the setting of aggressive IV hydration, was given total 4L - Monitor CMP #Methamphetamine Use Disorder Past medical history of Meth use disorder and tested positive on this admission. Last used 1 month ago. Half life of meth 6-15 hours. -may given Midazolam if signs of withdrawal #Newly diagnosed diabetes A1c stopped registering after >14 Patient was unaware that he was diabetic ? SSI ? glargine 15u ? lispro 2u ? carb consistent low ? Hypoglycemia protocol in place ? Registered dietitian referral sent Disposition: tele Fluids: none Feeding: carb consistent low Thrombo prophylaxis: heparin Gastric Ulcer prophylaxis: none CODE STATUS: DNR Case discussed with my senior Dr. Somers and my attending Dr. Dejon Laguna MD PGY-1 Attending Provider Attestation/Addendum 49-year-old male with unknown previous medical history who presented with left lower extremity swelling found to have uncontrolled hyperglycemia and internal medicine was consulted for sepsis. Upon evaluation, patient to have gas-forming changes on the CT for which there is a concern for necrotizing fasciitis and subsequently general surgery was consulted and plan for emergent surgical intervention. In addition, patient also noted to have uncontrolled hyperglycemia for which we will start patient on insulin. Of note, patient is requesting to be DNR and despite multiple counseling stated that understands that DNR means do not necessitate and I personally explained to him that if his heart was to stop this means that were unable to revive him and he will pass away for which patient understands and verbalized understanding. Continues to want to be DNR/DNI for which we will respect his decision. As of now, patient underwent surgical intervention and downgraded after he was upgraded to ICU for close monitoring. As of now, plan to continue vancomycin, Zosyn and plan to discontinue clindamycin, pending cultures and appreciate general surgery input. Will obtain infectious disease consultation as there is a plan for osteomyelitis based on x-ray imaging and thus plan to consult infectious disease as patient likely will need 6 weeks of IV antibiotic therapy at this time. I have also personally examined the patient with medicine team and went over assessment and plan with medical team including bakery pastry internship and resident physician.
--- NOTE | 2025-02-10 11:45 | PC.WOUND ---
Rounded with Dr. Coker at bedside, dressing removed saturated with purulent drainage. Oozing purulent drainage from wound x3 with 3+ edema to extremity with dusky erythema. No additional blistering or sites of fluctuates. Orders to increase dressing changes to BID and continue to monitor. MD discussion with patient if infection does not improve possible need for BKA. Will continue to follow.
--- NOTE | 2025-02-10 13:07 | PD.SURPROG ---
Documentation for date of: 02/10/25 Subjective Subjective Narrative: Patient is seen and examined. He is resting comfortably Exam Vital Signs Temp Pulse Resp BP Pulse Ox O2 Del Method O2 Flow Rate 97.7 F 74 22 H 100/61 95 Room Air 2 02/10/25 11:19 02/10/25 11:19 02/10/25 11:19 02/10/25 11:19 02/10/25 11:19 02/10/25 11:19 02/10/25 08:00 Constitutional Constitutional: no acute distress Routine Extremities Exam Comments: Left leg is edematous with cellulitis. There is still copious amount of purulent drainage emanating from the wound Assessment & Plan Assessment Additional comments: Postop day #2 status post incision and drainage of left leg abscess. WBC slightly down, cultures are pending Plan Continue IV antibiotics and wound care as directed Procedures Procedures Incision and drainage of left leg abscess
[2025-02-10] MEDS: INSULIN LISPRO (AdmeLOG) 1 UNIT/0.01 ML UNIT 2 UNIT SC ×2 (17:15→21:03)
[2025-02-10] MEDS: ACETAMINOPHEN 325 MG TABLET 650 MG PO (19:23)
[2025-02-10] MEDS: ATORVASTATIN CALCIUM 20 MG TABLET PO (21:01)
[2025-02-10] MEDS: INSULIN GLARGINE (Lantus) 5 UNIT/0.05 ML (PER 5 UNITS) 15 UNIT SC (21:05)
[2025-02-11] VITALS (8 sets, daily range): BP systolic 101–152; BP diastolic 54–82; PULSE 81–111; RESP 13–19; TEMP 36.7–37.9; O2SAT 93–97; BMI 32.2
[2025-02-11] MEDS: MORPHINE SULF INJ 10 MG/ML VIAL 2 MG IVP ×2 (03:19→14:34)
[2025-02-11] MEDS: PIPER/TAZO 3.375 GM PREMIX 3.375 GM/50 ML BAG IV (05:42)
[2025-02-11] MEDS: HYDROcodone/APAP 5/325 TABLET 1 TAB PO (05:42)
[2025-02-11] MEDS: VANCOMYCIN/D5W 1,250 MG IVPB 250 ML 120 MG IV (05:43)
[2025-02-11 05:44] LABS: Basophils # (Auto) 0.1 Thou/mm3 (0.0-0.2); Basophils % (Auto) 0 % (0-2.5); Eosinophils # (Auto) 0.2 Thou/mm3 (0.0-0.5); Eosinophils % (Auto) 1 % (0-10); Hematocrit 22.4 % (41.0-53.0); Immature Granulocytes % (Auto) 5 % (0-0); Immature Granulocytes Auto 1.52 Thou/mm3 (0.00-0.00); Lymphocytes # (Auto) 2.7 Thou/mm3 (1.0-4.8); Lymphocytes % (Auto) 8 % (10-50); Mean Corpuscular HGB Conc 33.5 g/dl (31.0-37.0); Mean Corpuscular Volume 84 fL (80-100); Monocytes # (Auto) 1.5 Thou/mm3 (0.0-0.8); Monocytes % (Auto) 5 % (0-12); Neutrophils # (Auto) 25.4 Thou/mm3 (1.8-7.7); Neutrophils % (Auto) 81 % (37-80); Nucleated Red Blood Cell % 0 /100 WBC (0); Platelet Count 523 Thou/mm3 (140-440); RDW Standard Deviation 40.3 fL (35.1-43.9); Red Blood Count 2.68 Miln/mm3 (4.50-5.90); White Blood Count 31.4 Thou/mm3 (3.8-10.6)
[2025-02-11 06:02] LABS: Hemoglobin 7.5 g/dL (13.5-16.0)
[2025-02-11 06:03] LABS: Alanine Aminotransferase 29 U/L (10-49); Albumin, Serum 2.5 gm/dL (3.5-5.0); Albumin/Globulin Ratio 0.7 (1.2-2.2); Alkaline Phosphatase 234 U/L (46-116); Anion Gap 6 (7-16); Aspartate Amino Transferase 49 U/L (0-34); BUN/Creatinine Ratio 24 Ratio (12-20); Bilirubin,Total 0.3 mg/dL (0.3-1.2); Blood Urea Nitrogen 19 mg/dL (9-23); Calcium 7.5 mg/dL (8.3-10.6); Calcium (Corrected) 8.7 mg/dL (8.5-10.1); Carbon Dioxide 25.2 mMol/L (20.0-31.0); Chloride 97 mMol/L (98-107); Creatinine (Component) 0.8 mg/dL (0.6-1.3); Estimated Creatinine Clearance 112.7 mL/min (>60); Globulin 3.4 gm/dL (2.3-3.5); Glucose 178 mg/dL (74-106); Magnesium 1.6 mg/dL (1.6-2.6); Osmolality,Calculated 263 (275-295); Phosphorous 3.2 mg/dL (2.4-5.1); Sodium 128 mMol/L (136-145); Total Protein 5.9 gm/dL (5.7-8.2); eGFR > 60 See Note
[2025-02-11] MEDS: INSULIN LISPRO (AdmeLOG) 1 UNIT/0.01 ML UNIT 2 UNIT SC ×2 (07:35→11:12)
[2025-02-11] MEDS: INSULIN LISPRO (AdmeLOG) 1 UNIT/0.01 ML UNIT SC ×4 (07:35→22:27)
--- NOTE | 2025-02-11 07:38 | PD.VCONSULT1 ---
Meds Home Medications and Allergies Home Medications ?Medication ?Instructions ?Recorded ?Confirmed ?Type No Known Home Medications 07/09/23 07/09/23 History Allergies Allergy/AdvReac Type Severity Reaction Status Date / Time No Known Allergies Allergy Verified 05/06/24 07:38 Virtual exam Vital Signs Temp Pulse Resp BP Pulse Ox O2 Del Method O2 Flow Rate 98.0 F 82 15 101/64 97 Room Air 2 02/11/25 07:24 02/11/25 07:24 02/11/25 07:24 02/11/25 07:24 02/11/25 07:24 02/11/25 04:00 02/10/25 08:00 Results Labs 02/11/25 04:42 02/11/25 04:42 Labs: Short CBC 02/11/25 Range/Units 04:42 WBC 31.4 H (3.8-10.6) Thou/mm3 Hgb 7.5 L (13.5-16.0) g/dL Hct 22.4 L (41.0-53.0) % Plt Count 523 H D (140-440) Thou/mm3 BMP 02/11/25 04:42 Sodium 128 L Potassium 4.0 Chloride 97 L Carbon Dioxide 25.2 BUN 19 Creatinine 0.8 Glucose 178 H Calcium 7.5 L Liver Function 02/11/25 Range/Units 04:42 Total Bilirubin 0.3 (0.3-1.2) mg/dL AST 49 H (0-34) U/L ALT 29 (10-49) U/L Alkaline Phosphatase 234 H (46-116) U/L Albumin 2.5 L (3.5-5.0) gm/dL
--- NOTE | 2025-02-11 07:41 | PD.HHPROG ---
Documentation for date of: 02/11/25 Subjective - Hospitalist Subjective Interval history: Patient seen and eval this a.m. He states that he is doing well. Patient continues to have fevers overnight. He reports pain in his left lower extremity which he is keeping up elevated. Patient stating that his left leg appeared black on presentation since his partner put iodine over it. He is currently postop day 3. Swelling under the dressing appears to have improved with wrinkling of the skin. Exam Vital Signs Temp Pulse Resp BP Pulse Ox O2 Del Method O2 Flow Rate 98.0 F 82 15 101/64 97 Room Air 2 02/11/25 07:24 02/11/25 07:24 02/11/25 07:24 02/11/25 07:24 02/11/25 07:24 02/11/25 04:00 02/10/25 08:00 Narrative Gen: No acute distress, poor hygiene HEENT: NCAT, PERRLOU, Sclera anicteric, conjunctiva noninjected, oral mucosa moist without erythema Neck: Supple, full range of motion, no LAD CV: RRR, no murmurs, rubs or gallops Resp: CTAB/L, no wheezing, rhonchi or rales GI: abdomen soft, bowel sounds noted, no tenderness to palpation, no guarding or rebound tenderness, no organomegaly Skin: clean, dry, no rashes, lesions or ecchymosis Ext: LLE dressing CDI, mild edema noted under dressing Neuro: A&O x3, CN II- XII intact b/l, no focal neurological deficits Objective - Hospitalist Labs Diagram: 02/11/25 04:42 02/11/25 04:42 Labs: Laboratory Results - last 24 hr 02/11/25 04:42 WBC 31.4 H RBC 2.68 L Hgb 7.5 L Hct 22.4 L MCV 84 MCH 28.0 MCHC 33.5 RDW Std Deviation 40.3 Plt Count 523 H D Neut % (Auto) 81 H Lymph % (Auto) 8 L [place] % (Auto) 5 Eos % (Auto) 1 Baso % (Auto) 0 Neut # (Auto) 25.4 H Lymph # (Auto) 2.7 [place] # (Auto) 1.5 H Eos # (Auto) 0.2 Baso # (Auto) 0.1 Immature Gran # (Auto) 1.52 H Absolute Nucleated RBC 0.00 Immature Gran % 5 H Nucleated RBC % 0 Sodium 128 L Potassium 4.0 Chloride 97 L Carbon Dioxide 25.2 Anion Gap 6 L BUN 19 Creatinine 0.8 Estim Creat Clear Calc 112.7 eGFR > 60 BUN/Creatinine Ratio 24 H Glucose 178 H Calculated Osmolality 263 L Calcium 7.5 L Corrected Calcium 8.7 Phosphorus 3.2 Magnesium 1.6 Total Bilirubin 0.3 AST 49 H ALT 29 Alkaline Phosphatase 234 H Total Protein 5.9 Albumin 2.5 L Globulin 3.4 Albumin/Globulin Ratio 0.7 L Assessment & Plan Patient Synopsis 49-year-old male with no past medical history who presented to the ED with left lower extremity extremity unable to bear weight. Was admitted for necrotizing fasciitis, general surgery was consulted will be taken to the operating room. #Cellulitis and abscess of left leg s/p Incision and drainage of left leg abscess, POD 3 #Osteomyelitis of 2nd and 3rd metatarsal #Lactic acidosis?resolved On presentation vitals significant for tachycardia, tachypnea, febrile, leukocytosis with source being left lower extremity with necrotizing fasciitis/osteomyelitis Patient with left lower extremity swelling symptoms onset about 1 week Patient does state that he noted a spider bite about a month ago Foot x-ray shows osteomyelitis on 2nd and 3rd metatarsals, positive foreign body in soft tissue first digit No concern for DVT as ultrasound was negative Lower extremity CT showed soft tissue abscess with gas-forming organisms in the soft tissue anterior lateral of the mid and lower tibia extending to the ankle LRINEC score: 7 Blood cultures negative in 24hours Leukocytosis likely secondary to acute infection and recent OR procedure ? OFF clindamycin (02/08/2025-02/10/2025), vancomycin (02/08/2025-02/11/25), zosyn (02/08/2025-02/10/2025 - Doxycycline was ordered by ID, but cultures positive for Enterococcus faecalis. Will switch abx to levofloxacin 750mg IV daily. ? ID consult, appreciate reccs ? Pain medications on board ? case discussed [facility] wound nurse, wound appears much improved today and less edematous, but continues to to have purulent discharge - F/u with gen/surg recs #Hypotonic Hyponatremia, hypovolemic-improving likely in the setting of above infection, improved with aggressive IV hydration, was given total 4L - corrected sodium is 129, continue with tight BG control #Methamphetamine Use Disorder Past medical history of Meth use disorder and tested positive on this admission. Last used 1 month ago. Half life of meth 6-15 hours. -may given Midazolam if signs of withdrawal #Newly diagnosed diabetes A1c stopped registering after >14 Patient was unaware that he was diabetic ? SSI ? glargine 15u ? lispro 5u TID ? carb consistent low ? Hypoglycemia protocol in place ? Registered dietitian referral sent Disposition: tele Fluids: none Feeding: carb consistent low Thrombo prophylaxis: heparin Gastric Ulcer prophylaxis: none CODE STATUS: DNR Time Spent with Patient Time: Total time spent is greater than 50% in coordination of care (as documented) at patient's floor/unit and/or counseling patient: 25min Time with patient: 25 - 35 minutes Reason for Continued Stay Reason for continued stay: IV antibiotics Quality Measures Quality Measures sepsis Current suspected stage: ruled out Possible source: skin/soft tissue (and bone) Blood cultures ordered: yes Antibiotic ordered: Yes
--- NOTE | 2025-02-11 07:45 | PD.ADDPROG ---
Addendum Progress Note Addendum Date of report being addended: 02/11/25 Narrative: I did not do a telemed visit on this man
[2025-02-11] MEDS: HEPARIN SOD INJ 5000 UNIT/ML VIAL SC ×2 (08:25→22:29)
[2025-02-11] MEDS: SENNA TABLET 1 TAB PO (08:25)
--- NOTE | 2025-02-11 10:16 | PC.SS ---
Addendum entered by Tisha Gamboa 02/11/25 14:46: SS met with patient at bedside to discuss insurance/financial coverage. SS explained that I spoke to financial counselor and the [employer] worker has been trying to contact him on his personal cell. He's not answering. SS provided him a phone number to directly get a hold of worker to apply for [employer] coverage. Patient will remain self pay status. Surgery consult. Discussion of possible amputation. Original Note: Follow up note: Pending ID rec's.
--- NOTE | 2025-02-11 11:41 | ESCONSULT_ITS ---
RE: BRANDAN DIETZ : 1975 DATE OF CONSULTATION: 02/11/2025 REFERRING PHYSICIAN: Dr. Ashford. REASON FOR CONSULTATION: Abscess on the left leg. HISTORY OF PRESENT ILLNESS: The patient is a newly discovered diabetic. His A1c was greater than 14. He also has a marked leukocytosis and was admitted for management of an abscess. The abscess was drained by the surgeons. Gram stain shows GBCs. Cultures are pending. The patient has leukocytosis that seems to be trending favorably. He would like to stay until tomorrow. He reports that he had a spider bite about a month ago and was positive for meth on a drug screen. HIV and hep C testing were negative. HIV testing was done in 2022. He reports his only surgery was the left leg abscess drainage. ALLERGIES: NONE NOTED. IMMUNIZATIONS: Last tetanus is unknown. He has not had flu shot every year and has had a COVID vaccine and has had pneumococcal vaccine. FAMILY HISTORY: Positive for diabetes in mother. SOCIAL HISTORY: He lives with two friends , he smokes half a pack a day see prior records. Alcohol use is absent. PHYSICAL EXAMINATION: The patient has a wrapped left leg. It is elevated. The rest of his exam is benign. Pulses are grossly adequate. He is not ill-appearing. ASSESSMENT: Left leg abscess with negative blood cultures, probably going to grow Staphylococcus aureus or group A Streptococcus. We do not know which at this point; could be MRSA. RECOMMENDATIONS: Since we do not know, current therapy with doxycycline p.o. b.i.d. is reasonable. If it turns out to be a strep, we can probably change it to Keflex 500 mg p.o. qid or 1000 t.i.d. He is fairly good size of 189 pounds. His BMI is 33.3. The patient wishes to go home tomorrow. I will refer to the primary team in that regard. I will check on him superficially on Friday if he remains. DT: 10:10:36 TT: 10:59:00 Ref: [id number] - TID: [id number] MTD
[2025-02-11 13:36] LABS: Vancomycin,Trough 17.6 mcg/mL (5.0-10.0)
[2025-02-11] MEDS: LEVOFLOXACIN/D5W 750MG IVPB 750 MG/150 ML BAG 100 MG IV (15:04)
[2025-02-11] MEDS: ACETAMINOPHEN 325 MG TABLET 650 MG PO (15:55)
--- NOTE | 2025-02-11 16:00 | PC.NURSE ---
Patient getting verbally abusive. Had to start cooling measures and gave patient tylenol. Will continue to monitor patient.
[2025-02-11] MEDS: INSULIN LISPRO (AdmeLOG) 1 UNIT/0.01 ML UNIT 5 UNIT SC (17:15)
[2025-02-11] MEDS: ATORVASTATIN CALCIUM 20 MG TABLET PO (22:18)
[2025-02-11] MEDS: INSULIN GLARGINE (Lantus) 5 UNIT/0.05 ML (PER 5 UNITS) 15 UNIT SC (22:28)
[2025-02-12] VITALS (9 sets, daily range): BP systolic 99–134; BP diastolic 63–81; PULSE 71–104; RESP 16–19; TEMP 36.1–38.3; O2SAT 93–97
[2025-02-12] MEDS: MORPHINE SULF INJ 10 MG/ML VIAL 2 MG IVP (02:25)
[2025-02-12] MEDS: HYDROcodone/APAP 5/325 TABLET 1 TAB PO (02:50)
[2025-02-12] MEDS: ACETAMINOPHEN 325 MG TABLET 650 MG PO (04:12)
[2025-02-12 05:27] LABS: Basophils # (Auto) 0.1 Thou/mm3 (0.0-0.2); Basophils % (Auto) 0 % (0-2.5); Eosinophils # (Auto) 0.2 Thou/mm3 (0.0-0.5); Eosinophils % (Auto) 1 % (0-10); Hematocrit 22.7 % (41.0-53.0); Immature Granulocytes % (Auto) 6 % (0-0); Immature Granulocytes Auto 1.58 Thou/mm3 (0.00-0.00); Lymphocytes # (Auto) 2.2 Thou/mm3 (1.0-4.8); Lymphocytes % (Auto) 8 % (10-50); Mean Corpuscular Hemoglobin 28.4 pg (25.0-35.0); Mean Corpuscular Volume 86 fL (80-100); Monocytes # (Auto) 1.6 Thou/mm3 (0.0-0.8); Monocytes % (Auto) 6 % (0-12); Neutrophils # (Auto) 22.7 Thou/mm3 (1.8-7.7); Neutrophils % (Auto) 80 % (37-80); Nucleated Red Blood Cell % 0 /100 WBC (0); Platelet Count 579 Thou/mm3 (140-440); RDW Standard Deviation 42.2 fL (35.1-43.9); Red Blood Count 2.64 Miln/mm3 (4.50-5.90); White Blood Count 28.3 Thou/mm3 (3.8-10.6)
[2025-02-12 05:28] LABS: Hemoglobin 7.5 g/dL (13.5-16.0)
[2025-02-12 05:36] LABS: Alanine Aminotransferase 23 U/L (10-49); Albumin, Serum 2.5 gm/dL (3.5-5.0); Albumin/Globulin Ratio 0.7 (1.2-2.2); Alkaline Phosphatase 247 U/L (46-116); Anion Gap 6 (7-16); Aspartate Amino Transferase 50 U/L (0-34); BUN/Creatinine Ratio 19 Ratio (12-20); Bilirubin,Total 0.2 mg/dL (0.3-1.2); Blood Urea Nitrogen 13 mg/dL (9-23); Calcium 7.5 mg/dL (8.3-10.6); Calcium (Corrected) 8.7 mg/dL (8.5-10.1); Carbon Dioxide 25.1 mMol/L (20.0-31.0); Chloride 95 mMol/L (98-107); Creatinine (Component) 0.7 mg/dL (0.6-1.3); Estimated Creatinine Clearance 128.8 mL/min (>60); Globulin 3.4 gm/dL (2.3-3.5); Glucose 228 mg/dL (74-106); Magnesium 1.4 mg/dL (1.6-2.6); Osmolality,Calculated 260 (275-295); Phosphorous 2.5 mg/dL (2.4-5.1); Potassium 4.3 mMol/L (3.4-5.1); Sodium 126 mMol/L (136-145); Total Protein 5.9 gm/dL (5.7-8.2); eGFR > 60 See Note
[2025-02-12] MEDS: INSULIN LISPRO (AdmeLOG) 1 UNIT/0.01 ML UNIT SC ×4 (08:00→20:08)
[2025-02-12] MEDS: INSULIN LISPRO (AdmeLOG) 1 UNIT/0.01 ML UNIT 7 UNIT SC ×3 (08:00→17:21)
[2025-02-12] MEDS: HEPARIN SOD INJ 5000 UNIT/ML VIAL SC ×2 (08:01→20:08)
[2025-02-12] MEDS: SENNA TABLET 1 TAB PO (08:02)
[2025-02-12] MEDS: LEVOFLOXACIN/D5W 750MG IVPB 750 MG/150 ML BAG 100 MG IV (08:02)
[2025-02-12] MEDS: SODIUM CHLORIDE 1 GM TABLET PO (09:35)
[2025-02-12] MEDS: SODIUM CHLORIDE 0.9% 500 ML 500 ML 999 ML IV (09:55)
--- NOTE | 2025-02-12 10:00 | PD.RESPRO ---
Documentation for date of: 02/12/25 Subjective Subjective Interval history: Patient seen today at the bedside found awake, alert, oriented x 3. No overnight events reported. Vital signs and labs reviewed. Hyponatremia has remained stable when corrected for hyperglycemia found to be around 129 started patient on 1 g salt tabs twice daily. Blood sugars continue to remain elevated glargine adjusted to 20 units and lispro adjusted to 7 units. Swelling in the left lower extremity improving, Will continue current antibiotic regimen with Levaquin 750 mg IV daily Exam Vital Signs Temp Pulse Resp BP Pulse Ox O2 Del Method O2 Flow Rate 97.0 F 71 17 99/65 97 Room Air 2 02/12/25 08:00 02/12/25 08:00 02/12/25 08:00 02/12/25 08:00 02/12/25 08:00 02/12/25 08:00 02/10/25 08:00 Narrative Exam Physical Exam GENERAL: NAD, AAOx3 HEENT: Moist mucosa. Eyes open, symmetrical, & clear CARDIO: Heart RRR, no obvious murmurs PULM: No noted coughing/dyspnea CTA B/L, no R/W/R GI: Abdomen soft, nondistended, no pain on palpation. BSx4 SKIN/MSK/EXT: LLE dressing CDI, mild edema noted under dressing, no pain on palpation. NEURO: AAOx3, no focal neuro deficits, able to move all 4 extremities Objective Labs 02/12/25 04:43 02/12/25 04:43 Labs: Laboratory Results - last 24 hr 02/11/25 02/12/25 13:00 04:43 WBC 28.3 H RBC 2.64 L Hgb 7.5 L Hct 22.7 L MCV 86 MCH 28.4 MCHC 33.0 RDW Std Deviation 42.2 Plt Count 579 H D Neut % (Auto) 80 Lymph % (Auto) 8 L [place] % (Auto) 6 Eos % (Auto) 1 Baso % (Auto) 0 Neut # (Auto) 22.7 H Lymph # (Auto) 2.2 [place] # (Auto) 1.6 H Eos # (Auto) 0.2 Baso # (Auto) 0.1 Immature Gran # (Auto) 1.58 H Absolute Nucleated RBC 0.00 Immature Gran % 6 H Nucleated RBC % 0 Sodium 126 L Potassium 4.3 Chloride 95 L Carbon Dioxide 25.1 Anion Gap 6 L BUN 13 Creatinine 0.7 Estim Creat Clear Calc 128.8 eGFR > 60 BUN/Creatinine Ratio 19 Glucose 228 H D Calculated Osmolality 260 L Calcium 7.5 L Corrected Calcium 8.7 Phosphorus 2.5 Magnesium 1.4 L Total Bilirubin 0.2 L AST 50 H ALT 23 Alkaline Phosphatase 247 H Total Protein 5.9 Albumin 2.5 L Globulin 3.4 Albumin/Globulin Ratio 0.7 L Vancomycin Trough 17.6 H Quality Measures Quality Measures sepsis Current suspected stage: ruled out Possible source: skin/soft tissue (and bone) Blood cultures ordered: yes Antibiotic ordered: Yes Assessment & Plan Assessment Current Active Medications: Generic Name Dose Route Start Last Admin Trade Name Freq PRN Reason Stop Dose Admin Acetaminophen 650 mg 02/09/25 10:50 02/12/25 04:12 Acetaminophen 325 Mg Tablet PO 03/10/25 13:21 650 mg Q6H PRN Administration Pain Scale 1-3 or Fever >100.3 Hydrocodone Bitart/Acetaminophen 1 tab 02/08/25 13:22 02/12/25 02:50 Hydrocodone/Apap 5/325 Tablet PO 02/13/25 13:21 1 tab Q4HR PRN Administration PAIN SCALE 4-10(Mod-Sev Atorvastatin Calcium 20 mg 02/09/25 21:00 02/11/25 22:18 Atorvastatin Calcium 20 Mg Tablet PO 03/11/25 20:59 20 mg HS SERA Administration Dextrose 25 ml 02/08/25 14:06 Dextrose 50%-Water Inj 50 Ml Syringe IV 03/10/25 14:05 Q15MIN PRN BG 50-70 responsive npo pt Dextrose 50 ml 02/08/25 14:06 Dextrose 50%-Water Inj 50 Ml Syringe IV 03/10/25 14:05 Q15MIN PRN BG <50 OR BG <70 & pt unresponsive Glucagon 1 mg 02/08/25 14:06 Glucagon Inj 1 Mg Vial IM Q15MIN PRN BG <70, and no IV access Heparin Sodium (Porcine) 5,000 unit 02/09/25 21:00 02/12/25 08:01 Heparin Sod Inj 5000 Unit/Ml Vial SC 02/23/25 20:59 5,000 unit Q12HR SERA Administration Levofloxacin/Dextrose 750 mg in 150 mls @ 100 mls/hr 02/11/25 15:00 02/12/25 08:02 Levaquin Ivpb IV 02/18/25 14:59 100 mls/hr QDAY SERA Administration Sodium Chloride 500 mls @ 999 mls/hr 02/12/25 09:48 Ns IV 02/12/25 10:18 .Q31M ONE Insulin Glargine 20 unit 02/12/25 21:00 Insulin Glargine (Lantus) 5 Unit/0.05 Ml (Per 5 Units) SC 03/14/25 20:59 HS SERA Insulin Human Lispro 0 unit 02/09/25 11:30 02/12/25 08:00 Insulin Lispro (Admelog) 1 Unit/0.01 Ml Unit SC 03/11/25 11:29 2 unit ACHS SERA Administration Protocol Insulin Human Lispro 7 unit 02/12/25 07:30 02/12/25 08:00 Insulin Lispro (Admelog) 1 Unit/0.01 Ml Unit SC 03/14/25 07:29 7 unit AC SERA Administration Morphine Sulfate 2 mg 02/08/25 13:22 02/12/25 02:25 Morphine Sulf Inj 10 Mg/Ml Vial IVP 02/13/25 13:21 2 mg Q2H PRN Administration BREAKTHROUGH PAIN Protocol Ondansetron HCl 4 mg 02/08/25 13:22 Ondansetron Inj 2 Mg/Ml Inj 2 Ml IV 03/10/25 13:21 Q6H PRN NAUSEA OR VOMITING Protocol Sennosides 1 tab 02/09/25 09:00 02/12/25 08:02 Senna Tablet PO 03/11/25 08:59 1 tab QDAY SERA Administration Protocol Sodium Chloride 1 gm 02/12/25 09:00 02/12/25 09:35 Sodium Chloride 1 Gm Tablet PO 03/14/25 08:59 1 gm BID SERA Administration Plan 49-year-old male with no past medical history who presented to the ED with left lower extremity extremity unable to bear weight. Was admitted for necrotizing fasciitis, general surgery was consulted will be taken to the operating room. #Cellulitis and abscess of left leg s/p Incision and drainage of left leg abscess, POD#4 #Osteomyelitis of 2nd and 3rd metatarsal #Lactic acidosis?resolved On presentation vitals significant for tachycardia, tachypnea, febrile, leukocytosis with source being left lower extremity with necrotizing fasciitis/osteomyelitis Patient with left lower extremity swelling symptoms onset about 1 week Patient does state that he noted a spider bite about a month ago Foot x-ray shows osteomyelitis on 2nd and 3rd metatarsals, positive foreign body in soft tissue first digit No concern for DVT as ultrasound was negative Lower extremity CT showed soft tissue abscess with gas-forming organisms in the soft tissue anterior lateral of the mid and lower tibia extending to the ankle LRINEC score: 7 Blood cultures negative in 24hours Leukocytosis likely secondary to acute infection and recent OR procedure Doxycycline was ordered by ID, but cultures positive for Enterococcus faecalis. ? OFF clindamycin (02/08/2025-02/10/2025), vancomycin (02/08/2025-02/11/25), zosyn (02/08/2025-02/11/2025) - on levofloxacin 750mg IV daily. ? ID consult, appreciate reccs ? Pain medications on board ? instructed nurse to inform when dressing changes are done to evaluate improvement on wound, around the area of dressings seems swelling has improved - F/u with gen/surg recs #Hypotonic Hyponatremia, hypovolemic-improving likely in the setting of above infection, improved with aggressive IV hydration, was given total 4L - corrected sodium is 129, continue with tight BG control - 1g salt tabs BID - f/u Na lvls #Methamphetamine Use Disorder Past medical history of Meth use disorder and tested positive on this admission. Last used 1 month ago. Half life of meth 6-15 hours. -may given Midazolam if signs of withdrawal #Newly diagnosed diabetes A1c stopped registering after >14 Patient was unaware that he was diabetic ? SSI ? glargine 20u ? lispro 7u TID ? carb consistent low ? Hypoglycemia protocol in place ? Registered dietitian referral sent Disposition: tele Fluids: none Feeding: carb consistent low Thrombo prophylaxis: heparin Gastric Ulcer prophylaxis: none CODE STATUS: DNR Case discussed with my attending Dr. Josette Laguna MD PGY-1 Attending Provider Attestation/Addendum Cece Jimenez, , attest that I was physically present for the zheng portions of the service and evaluated the patient with the resident and I reviewed and discussed the case with the resident and agree with the resident's findings and plans of care as documented above Patient seen and evaluated this a.m. Patient states that he is feeling well. No acute events overnight. Wound dressing was done at 3 AM per nursing. Edema around the dressing appears to have improved. Will continue with antibiotics at this time. Will follow-up with surgical recommendations. Continue wound care at this time. Hyponatremia persists. Corrected sodium is 129. Will give patient salt tab and continue to trend sodium. Leukocytosis improving and patient continue to have fevers overnight.
[2025-02-12] MEDS: ATORVASTATIN CALCIUM 20 MG TABLET PO (20:06)
[2025-02-12] MEDS: INSULIN GLARGINE (Lantus) 5 UNIT/0.05 ML (PER 5 UNITS) 20 UNIT SC (20:07)
[2025-02-13] VITALS (10 sets, daily range): BP systolic 99–156; BP diastolic 61–87; PULSE 77–107; RESP 16–19; TEMP 36.1–39.2; O2SAT 93–98
[2025-02-13] MEDS: ACETAMINOPHEN 325 MG TABLET 650 MG PO (05:12)
[2025-02-13 05:41] LABS: Basophils # (Auto) 0.1 Thou/mm3 (0.0-0.2); Basophils % (Auto) 0 % (0-2.5); Eosinophils # (Auto) 0.1 Thou/mm3 (0.0-0.5); Eosinophils % (Auto) 0 % (0-10); Hematocrit 24.7 % (41.0-53.0); Immature Granulocytes % (Auto) 5 % (0-0); Lymphocytes # (Auto) 2.6 Thou/mm3 (1.0-4.8); Lymphocytes % (Auto) 9 % (10-50); Mean Corpuscular HGB Conc 34.8 g/dl (31.0-37.0); Mean Corpuscular Hemoglobin 28.7 pg (25.0-35.0); Mean Corpuscular Volume 82 fL (80-100); Monocytes # (Auto) 1.9 Thou/mm3 (0.0-0.8); Monocytes % (Auto) 6 % (0-12); Neutrophils # (Auto) 24.7 Thou/mm3 (1.8-7.7); Neutrophils % (Auto) 80 % (37-80); Nucleated Red Blood Cell # 0.03 Thou/mm3 (0.00-0.00); Nucleated Red Blood Cell % 0 /100 WBC (0); Platelet Count 566 Thou/mm3 (140-440); RDW Standard Deviation 40.3 fL (35.1-43.9); White Blood Count 30.9 Thou/mm3 (3.8-10.6)
[2025-02-13 06:01] LABS: Alanine Aminotransferase 25 U/L (10-49); Albumin, Serum 2.7 gm/dL (3.5-5.0); Albumin/Globulin Ratio 0.7 (1.2-2.2); Alkaline Phosphatase 248 U/L (46-116); Anion Gap 7 (7-16); Aspartate Amino Transferase 63 U/L (0-34); BUN/Creatinine Ratio 17 Ratio (12-20); Bilirubin,Total 0.4 mg/dL (0.3-1.2); Blood Urea Nitrogen 12 mg/dL (9-23); Calcium 7.7 mg/dL (8.3-10.6); Calcium (Corrected) 8.7 mg/dL (8.5-10.1); Carbon Dioxide 25.8 mMol/L (20.0-31.0); Chloride 94 mMol/L (98-107); Creatinine (Component) 0.7 mg/dL (0.6-1.3); Estimated Creatinine Clearance 127.5 mL/min (>60); Globulin 3.8 gm/dL (2.3-3.5); Glucose 126 mg/dL (74-106); Magnesium 1.4 mg/dL (1.6-2.6); Osmolality,Calculated 256 (275-295); Phosphorous 2.9 mg/dL (2.4-5.1); Potassium 4.3 mMol/L (3.4-5.1); Sodium 127 mMol/L (136-145); Total Protein 6.5 gm/dL (5.7-8.2); eGFR > 60 See Note
[2025-02-13 06:14] LABS: Hemoglobin 8.6 g/dL (13.5-16.0)
[2025-02-13] MEDS: INSULIN LISPRO (AdmeLOG) 1 UNIT/0.01 ML UNIT 7 UNIT SC ×3 (09:49→17:01)
[2025-02-13] MEDS: Magnesium Sulfate 4 GM Ivpb 4 GM/50 ML BAG IV (09:50)
[2025-02-13] MEDS: INSULIN LISPRO (AdmeLOG) 1 UNIT/0.01 ML UNIT SC ×4 (09:50→22:27)
[2025-02-13] MEDS: LEVOFLOXACIN/D5W 750MG IVPB 750 MG/150 ML BAG 100 MG IV (09:50)
[2025-02-13] MEDS: SENNA TABLET 1 TAB PO (09:51)
[2025-02-13] MEDS: SODIUM CHLORIDE 1 GM TABLET PO ×2 (09:51→21:38)
[2025-02-13] MEDS: HEPARIN SOD INJ 5000 UNIT/ML VIAL SC ×2 (09:51→21:40)
[2025-02-13] MEDS: DOXYCYCLINE 100 MG TABLET PO ×2 (10:04→21:38)
--- NOTE | 2025-02-13 11:36 | ESPR_ITS ---
Documentation for date of: 02/13/25 Subjective Subjective Interval history: Patient seen today at the bedside found awake, alert, orientedx3. Overnight patient had fever episodes with Tmax of 102.5, currently on IV Levaquin, doxycycline added. Vitals and labs reviewed. Abscess culture grew Enterococcus faecalis sensitive to Levaquin. Wound was examined yesterday afternoon still with a lot of purulent discharge. Will continue to monitor the patient at this time. Exam Vital Signs Temp Pulse Resp BP Pulse Ox O2 Del Method O2 Flow Rate 99.2 F 92 16 121/74 98 Room Air 2 02/13/25 07:47 02/13/25 07:47 02/13/25 07:47 02/13/25 07:47 02/13/25 07:47 02/13/25 04:00 02/10/25 08:00 Narrative Exam Physical Exam GENERAL: NAD, AAOx3 HEENT: Moist mucosa. Eyes open, symmetrical, & clear CARDIO: Heart RRR, no obvious murmurs PULM: No noted coughing/dyspnea CTA B/L, no R/W/R GI: Abdomen soft, nondistended, no pain on palpation. BSx4 SKIN/MSK/EXT: LLE with purulent discharge, mild edema noted under dressing, no pain on palpation. NEURO: AAOx3, no focal neuro deficits, able to move all 4 extremities Objective Labs 02/14/25 05:20 02/14/25 05:20 Labs: Laboratory Results - last 24 hr 02/13/25 04:49 WBC 30.9 H RBC 3.00 L Hgb 8.6 L Hct 24.7 L MCV 82 MCH 28.7 MCHC 34.8 RDW Std Deviation 40.3 Plt Count 566 H Neut % (Auto) 80 Lymph % (Auto) 9 L [place] % (Auto) 6 Eos % (Auto) 0 Baso % (Auto) 0 Neut # (Auto) 24.7 H Lymph # (Auto) 2.6 [place] # (Auto) 1.9 H Eos # (Auto) 0.1 Baso # (Auto) 0.1 Immature Gran # (Auto) 1.50 H Absolute Nucleated RBC 0.03 H Immature Gran % 5 H Nucleated RBC % 0 Sodium 127 L Potassium 4.3 Chloride 94 L Carbon Dioxide 25.8 Anion Gap 7 BUN 12 Creatinine 0.7 Estim Creat Clear Calc 127.5 eGFR > 60 BUN/Creatinine Ratio 17 Glucose 126 H D Calculated Osmolality 256 L Calcium 7.7 L Corrected Calcium 8.7 Phosphorus 2.9 Magnesium 1.4 L Total Bilirubin 0.4 AST 63 H ALT 25 Alkaline Phosphatase 248 H Total Protein 6.5 Albumin 2.7 L Globulin 3.8 H Albumin/Globulin Ratio 0.7 L Quality Measures Quality Measures sepsis Current suspected stage: ruled out Possible source: skin/soft tissue (and bone) Blood cultures ordered: yes Antibiotic ordered: Yes Assessment & Plan Assessment Current Active Medications: Generic Name Dose Route Start Last Admin Trade Name Freq PRN Reason Stop Dose Admin Acetaminophen 650 mg 02/09/25 10:50 02/13/25 05:12 Acetaminophen 325 Mg Tablet PO 03/10/25 13:21 650 mg Q6H PRN Administration Pain Scale 1-3 or Fever >100.3 Hydrocodone Bitart/Acetaminophen 1 tab 02/08/25 13:22 02/12/25 02:50 Hydrocodone/Apap 5/325 Tablet PO 02/13/25 13:21 1 tab Q4HR PRN Administration PAIN SCALE 4-10(Mod-Sev Atorvastatin Calcium 20 mg 02/09/25 21:00 02/12/25 20:06 Atorvastatin Calcium 20 Mg Tablet PO 03/11/25 20:59 20 mg HS SERA Administration Dextrose 25 ml 02/08/25 14:06 Dextrose 50%-Water Inj 50 Ml Syringe IV 03/10/25 14:05 Q15MIN PRN BG 50-70 responsive npo pt Dextrose 50 ml 02/08/25 14:06 Dextrose 50%-Water Inj 50 Ml Syringe IV 03/10/25 14:05 Q15MIN PRN BG <50 OR BG <70 & pt unresponsive Doxycycline Hyclate 100 mg 02/13/25 10:00 02/13/25 10:04 Doxycycline 100 Mg Tablet PO 02/20/25 09:59 100 mg BID SERA Administration Glucagon 1 mg 02/08/25 14:06 Glucagon Inj 1 Mg Vial IM Q15MIN PRN BG <70, and no IV access Heparin Sodium (Porcine) 5,000 unit 02/09/25 21:00 02/13/25 09:51 Heparin Sod Inj 5000 Unit/Ml Vial SC 02/23/25 20:59 5,000 unit Q12HR SERA Administration Levofloxacin/Dextrose 750 mg in 150 mls @ 100 mls/hr 02/11/25 15:00 02/13/25 09:50 Levaquin Ivpb IV 02/18/25 14:59 100 mls/hr QDAY SERA Administration Magnesium Sulfate 4 gm in 50 mls @ 12.5 mls/hr 02/13/25 08:10 02/13/25 09:50 Magnesium Sulfate Ivpb IV 02/13/25 12:09 12.5 mls/hr X1 ONE Administration Insulin Glargine 20 unit 02/12/25 21:00 02/12/25 20:07 Insulin Glargine (Lantus) 5 Unit/0.05 Ml (Per 5 Units) SC 03/14/25 20:59 20 unit HS SERA Administration Insulin Human Lispro 0 unit 02/09/25 11:30 02/13/25 09:50 Insulin Lispro (Admelog) 1 Unit/0.01 Ml Unit SC 03/11/25 11:29 1 unit ACHS SERA Administration Protocol Insulin Human Lispro 7 unit 02/12/25 07:30 02/13/25 09:49 Insulin Lispro (Admelog) 1 Unit/0.01 Ml Unit SC 03/14/25 07:29 7 unit AC SERA Administration Morphine Sulfate 2 mg 02/08/25 13:22 02/12/25 02:25 Morphine Sulf Inj 10 Mg/Ml Vial IVP 02/13/25 13:21 2 mg Q2H PRN Administration BREAKTHROUGH PAIN Protocol Ondansetron HCl 4 mg 02/08/25 13:22 Ondansetron Inj 2 Mg/Ml Inj 2 Ml IV 03/10/25 13:21 Q6H PRN NAUSEA OR VOMITING Protocol Sennosides 1 tab 02/09/25 09:00 02/13/25 09:51 Senna Tablet PO 03/11/25 08:59 1 tab QDAY SERA Administration Protocol Sodium Chloride 1 gm 02/12/25 09:00 02/13/25 09:51 Sodium Chloride 1 Gm Tablet PO 03/14/25 08:59 1 gm BID SERA Administration Plan 49-year-old male with no past medical history who presented to the ED with left lower extremity extremity unable to bear weight. Was admitted for necrotizing fasciitis, general surgery was consulted will be taken to the operating room. #Cellulitis and abscess of left leg s/p Incision and drainage of left leg abscess, POD#5 #Osteomyelitis of 2nd and 3rd metatarsal #Lactic acidosis?resolved On presentation vitals significant for tachycardia, tachypnea, febrile, leukocytosis with source being left lower extremity with necrotizing fasciitis/osteomyelitis Patient with left lower extremity swelling symptoms onset about 1 week Patient does state that he noted a spider bite about a month ago Foot x-ray shows osteomyelitis on 2nd and 3rd metatarsals, positive foreign body in soft tissue first digit No concern for DVT as ultrasound was negative Lower extremity CT showed soft tissue abscess with gas-forming organisms in the soft tissue anterior lateral of the mid and lower tibia extending to the ankle LRINEC score: 7 Blood cultures negative in 24hours Leukocytosis likely secondary to acute infection and recent OR procedure Doxycycline was ordered by ID, but cultures positive for Enterococcus faecalis. ? OFF clindamycin (02/08/2025-02/10/2025), vancomycin (02/08/2025-02/11/25), zosyn (02/08/2025-02/11/2025) ? on levofloxacin 750mg IV daily. (02/11/2025-) ? on doxycycline (02/13/2025-) ? ID consult, appreciate reccs ? Pain medications on board - F/u with gen/surg recs #Hypotonic Hyponatremia, hypovolemic-improving likely in the setting of above infection, improved with aggressive IV hydration, was given total 4L - corrected sodium is 129, continue with tight BG control - 1g salt tabs BID - f/u Na lvls #Methamphetamine Use Disorder Past medical history of Meth use disorder and tested positive on this admission. Last used 1 month ago. Half life of meth 6-15 hours. -may given Midazolam if signs of withdrawal #Newly diagnosed diabetes A1c stopped registering after >14 Patient was unaware that he was diabetic ? SSI ? glargine 25u ? lispro 7u TID ? carb consistent low ? Hypoglycemia protocol in place ? Registered dietitian referral sent Disposition: tele Fluids: none Feeding: carb consistent low Thrombo prophylaxis: heparin Gastric Ulcer prophylaxis: none CODE STATUS: DNR Case discussed with my attending Dr. Josette Laguna MD PGY-1 Attending Provider Attestation/Addendum Barbara, Cece Finch, DO, attest that I was physically present for the zheng portions of the service and evaluated the patient with the resident and I reviewed and discussed the case with the resident and agree with the resident's findings and plans of care as documented above Patient seen eval this a.m. No acute events overnight. Left lower extremity is hyperpigmented and patient has some pain to palpation of surrounding area of the wound. The wound is communicating from lateral to medial aspect. Lateral aspect appears to have some purulent drainage upon expression. Patient continues to have fevers overnight. Continue with wound care and general surgery recommendations at this time. Blood glucose remains uncontrolled.
[2025-02-13] MEDS: ATORVASTATIN CALCIUM 20 MG TABLET PO (21:38)
[2025-02-13] MEDS: INSULIN GLARGINE (Lantus) 5 UNIT/0.05 ML (PER 5 UNITS) 25 UNIT SC (22:27)
[2025-02-14] VITALS (11 sets, daily range): BP systolic 102–141; BP diastolic 59–86; PULSE 71–112; RESP 16–21; TEMP 36.3–38.5; O2SAT 92–98; BMI 31.6
[2025-02-14] MEDS: ACETAMINOPHEN 325 MG TABLET 650 MG PO (02:00)
--- NOTE | 2025-02-14 02:05 | PC.NURSE ---
pt had diarrhea, loose stool on restroom floor. Pt showered, covered LLE wound with ultrasorb pad and plastic. After shower rechecked T=101.3. Pt feeling cold. Tylenol po given and cooling measures applied.
[2025-02-14 06:13] LABS: Basophils # (Auto) 0.1 Thou/mm3 (0.0-0.2); Basophils % (Auto) 0 % (0-2.5); Eosinophils # (Auto) 0.1 Thou/mm3 (0.0-0.5); Eosinophils % (Auto) 0 % (0-10); Hematocrit 24.3 % (41.0-53.0); Immature Granulocytes % (Auto) 4 % (0-0); Immature Granulocytes Auto 0.96 Thou/mm3 (0.00-0.00); Lymphocytes # (Auto) 2.2 Thou/mm3 (1.0-4.8); Lymphocytes % (Auto) 8 % (10-50); Mean Corpuscular HGB Conc 33.7 g/dl (31.0-37.0); Mean Corpuscular Hemoglobin 27.8 pg (25.0-35.0); Mean Corpuscular Volume 82 fL (80-100); Monocytes % (Auto) 8 % (0-12); Neutrophils # (Auto) 21.3 Thou/mm3 (1.8-7.7); Neutrophils % (Auto) 80 % (37-80); Nucleated Red Blood Cell % 0 /100 WBC (0); Platelet Count 473 Thou/mm3 (140-440); RDW Standard Deviation 40.8 fL (35.1-43.9); Red Blood Count 2.95 Miln/mm3 (4.50-5.90); White Blood Count 26.7 Thou/mm3 (3.8-10.6)
[2025-02-14 06:30] LABS: Hemoglobin 8.2 g/dL (13.5-16.0)
[2025-02-14 06:42] LABS: Alanine Aminotransferase 28 U/L (10-49); Albumin, Serum 2.5 gm/dL (3.5-5.0); Albumin/Globulin Ratio 0.7 (1.2-2.2); Alkaline Phosphatase 287 U/L (46-116); Anion Gap 7 (7-16); Aspartate Amino Transferase 81 U/L (0-34); BUN/Creatinine Ratio 18 Ratio (12-20); Bilirubin,Total 0.3 mg/dL (0.3-1.2); Blood Urea Nitrogen 14 mg/dL (9-23); Calcium 7.7 mg/dL (8.3-10.6); Calcium (Corrected) 8.9 mg/dL (8.5-10.1); Carbon Dioxide 26.5 mMol/L (20.0-31.0); Chloride 96 mMol/L (98-107); Creatinine (Component) 0.8 mg/dL (0.6-1.3); Estimated Creatinine Clearance 135.5 mL/min (>60); Globulin 3.6 gm/dL (2.3-3.5); Glucose 230 mg/dL (74-106); Magnesium 1.7 mg/dL (1.6-2.6); Osmolality,Calculated 266 (275-295); Phosphorous 4.2 mg/dL (2.4-5.1); Potassium 4.2 mMol/L (3.4-5.1); Sodium 129 mMol/L (136-145); Total Protein 6.1 gm/dL (5.7-8.2); eGFR > 60 See Note
[2025-02-14] MEDS: INSULIN LISPRO (AdmeLOG) 1 UNIT/0.01 ML UNIT SC ×4 (07:15→21:18)
[2025-02-14] MEDS: INSULIN LISPRO (AdmeLOG) 1 UNIT/0.01 ML UNIT 7 UNIT SC (07:16)
[2025-02-14] MEDS: LEVOFLOXACIN/D5W 750MG IVPB 750 MG/150 ML BAG 100 MG IV (08:39)
[2025-02-14] MEDS: HEPARIN SOD INJ 5000 UNIT/ML VIAL SC ×2 (08:40→21:17)
[2025-02-14] MEDS: FERROUS SULF 325 MG TABLET PO (08:40)
[2025-02-14] MEDS: INSULIN LISPRO (AdmeLOG) 1 UNIT/0.01 ML UNIT 3 UNIT SC (08:40)
[2025-02-14] MEDS: SENNA TABLET 1 TAB PO (08:40)
[2025-02-14] MEDS: VIT B12/Vit C/FA (Nephrovite) TABLET 1 TAB PO (08:40)
[2025-02-14] MEDS: MUPIROCIN OINT 2% 15 GM TUBE TOP (08:54)
[2025-02-14] MEDS: VANCOMYCIN/D5W 1,250 MG IVPB 250 ML 120 MG IV (09:07)
--- NOTE | 2025-02-14 09:25 | PD.IDPROG ---
Subjective Subjective Interval history: findings noted. primary team prefers different doses and meds. that is ok. they may make all further abx decisions. Exam Vital Signs Temp Pulse Resp BP Pulse Ox O2 Del Method O2 Flow Rate 97.6 F 71 18 113/66 94 L Room Air 2 02/14/25 08:00 02/14/25 08:00 02/14/25 08:00 02/14/25 08:00 02/14/25 08:00 02/14/25 08:00 02/10/25 08:00 Narrative Exam limited eval Objective - Internal Medicine Labs 02/14/25 05:20 02/14/25 05:20 Labs: Laboratory Results - last 24 hr 02/14/25 05:20 WBC 26.7 H RBC 2.95 L Hgb 8.2 L Hct 24.3 L MCV 82 MCH 27.8 MCHC 33.7 RDW Std Deviation 40.8 Plt Count 473 H D Neut % (Auto) 80 Lymph % (Auto) 8 L [place] % (Auto) 8 Eos % (Auto) 0 Baso % (Auto) 0 Neut # (Auto) 21.3 H Lymph # (Auto) 2.2 [place] # (Auto) 2.0 H Eos # (Auto) 0.1 Baso # (Auto) 0.1 Immature Gran # (Auto) 0.96 H Absolute Nucleated RBC 0.00 Immature Gran % 4 H Nucleated RBC % 0 Sodium 129 L Potassium 4.2 Chloride 96 L Carbon Dioxide 26.5 Anion Gap 7 BUN 14 Creatinine 0.8 Estim Creat Clear Calc 135.5 eGFR > 60 BUN/Creatinine Ratio 18 Glucose 230 H D Calculated Osmolality 266 L Calcium 7.7 L Corrected Calcium 8.9 Phosphorus 4.2 Magnesium 1.7 Total Bilirubin 0.3 AST 81 H ALT 28 Alkaline Phosphatase 287 H D Total Protein 6.1 Albumin 2.5 L Globulin 3.6 H Albumin/Globulin Ratio 0.7 L Assessment & Plan A&P Narrative will see again prn. primary team taking charge of abx. that is their prerogative. Time Spent With Patient Time: Total time spent is greater than 50% in coordination of care (as documented) at patient's floor/unit and/or counseling patient:
[2025-02-14] MEDS: INSULIN LISPRO (AdmeLOG) 1 UNIT/0.01 ML UNIT 10 UNIT SC ×2 (11:14→16:59)
--- NOTE | 2025-02-14 11:53 | ESPR_ITS ---
Documentation for date of: 02/14/25 Subjective Subjective Interval history: Patient was seen and examined at bedside this AM. No acute events overnight. Patient had fever spikes >24 hours ago with Tmax of 102.5, so doxycycline was added No more fevers, he is tolerating diet, adequate urine output and mentation is at baseline. Patient endorses improvement of LT leg pain. Per wound care, wound is still draining purulent discharge, but improvement is surrounding swelling. Patient is able to bear weight on the leg and ambulate independently to the restroom On antibiotic switched to p.o. preparation for discharge. Pending [facility] set up in order to continue outpatient wound care. Exam Vital Signs Temp Pulse Resp BP Pulse Ox O2 Del Method O2 Flow Rate 98.4 F 87 18 120/75 92 L Room Air 2 02/14/25 11:49 02/14/25 11:49 02/14/25 11:49 02/14/25 11:49 02/14/25 11:49 02/14/25 08:00 02/10/25 08:00 Narrative Exam Constitutional Alert, oriented x3 and comfortable. Afebrile x24 hours HEENT Vision grossly intact. Patent nares. Trachea midline. Respiratory Chest normal on inspection and clear to auscultation bilaterally. Cardiovascular S1 and S2 audible, RRR. No murmurs or carotid bruit. No gross JVD. Abdominal Soft and non tender to palpation in all quadrants. BS + Genitourinary No bladder tenderness, no flank pain. Normal to palpation. Musculoskeletal Extremities tone within normal limits. LT LE wound purulent drainage, mild swelling. Neurological CN II - XII grossly intact. Extremity motor and sensation grossly intact. Skin Warm, dry and intact. No apparent lesions. Psychiatric Patient has a good affect, is cooperative. Objective Labs 02/15/25 04:45 02/15/25 04:45 Labs: Laboratory Results - last 24 hr 02/14/25 05:20 WBC 26.7 H RBC 2.95 L Hgb 8.2 L Hct 24.3 L MCV 82 MCH 27.8 MCHC 33.7 RDW Std Deviation 40.8 Plt Count 473 H D Neut % (Auto) 80 Lymph % (Auto) 8 L [place] % (Auto) 8 Eos % (Auto) 0 Baso % (Auto) 0 Neut # (Auto) 21.3 H Lymph # (Auto) 2.2 [place] # (Auto) 2.0 H Eos # (Auto) 0.1 Baso # (Auto) 0.1 Immature Gran # (Auto) 0.96 H Absolute Nucleated RBC 0.00 Immature Gran % 4 H Nucleated RBC % 0 Sodium 129 L Potassium 4.2 Chloride 96 L Carbon Dioxide 26.5 Anion Gap 7 BUN 14 Creatinine 0.8 Estim Creat Clear Calc 135.5 eGFR > 60 BUN/Creatinine Ratio 18 Glucose 230 H D Calculated Osmolality 266 L Calcium 7.7 L Corrected Calcium 8.9 Phosphorus 4.2 Magnesium 1.7 Total Bilirubin 0.3 AST 81 H ALT 28 Alkaline Phosphatase 287 H D Total Protein 6.1 Albumin 2.5 L Globulin 3.6 H Albumin/Globulin Ratio 0.7 L Quality Measures Quality Measures sepsis Current suspected stage: sepsis Possible source: skin/soft tissue (and bone) Blood cultures ordered: yes Antibiotic ordered: Yes Assessment & Plan Assessment Current Active Medications: Generic Name Dose Route Start Last Admin Trade Name Freq PRN Reason Stop Dose Admin Acetaminophen 650 mg 02/09/25 10:50 02/14/25 02:00 Acetaminophen 325 Mg Tablet PO 03/10/25 13:21 650 mg Q6H PRN Administration Pain Scale 1-3 or Fever >100.3 Atorvastatin Calcium 40 mg 02/14/25 21:00 Atorvastatin Calcium 20 Mg Tablet PO 03/16/25 20:59 HS SERA Dextrose 50 ml 02/08/25 14:06 Dextrose 50%-Water Inj 50 Ml Syringe IV 03/10/25 14:05 Q15MIN PRN BG <50 OR BG <70 & pt unresponsive Doxycycline Hyclate 100 mg 02/14/25 21:00 Doxycycline 100 Mg Tablet PO 02/21/25 20:59 BID SERA Ferrous Sulfate 325 mg 02/14/25 08:15 02/14/25 08:40 Ferrous Sulf 325 Mg Tablet PO 03/16/25 08:14 325 mg QOD SERA Administration Glucagon 1 mg 02/08/25 14:06 Glucagon Inj 1 Mg Vial IM Q15MIN PRN BG <70, and no IV access Heparin Sodium (Porcine) 5,000 unit 02/09/25 21:00 02/14/25 08:40 Heparin Sod Inj 5000 Unit/Ml Vial SC 02/23/25 20:59 5,000 unit Q12HR SERA Administration Insulin Glargine 30 unit 02/14/25 21:00 Insulin Glargine (Lantus) 5 Unit/0.05 Ml (Per 5 Units) SC 03/16/25 20:59 HS SERA Insulin Human Lispro 0 unit 02/09/25 11:30 02/14/25 11:13 Insulin Lispro (Admelog) 1 Unit/0.01 Ml Unit SC 03/11/25 11:29 2 unit ACHS [facility] Administration Protocol Insulin Human Lispro 10 unit 02/14/25 11:30 02/14/25 11:14 Insulin Lispro (Admelog) 1 Unit/0.01 Ml Unit SC 03/16/25 11:29 10 unit AC [facility] Administration Levofloxacin 750 mg 02/15/25 09:00 Levofloxacin 250 Mg Tablet PO 02/22/25 08:59 QDAY [facility] Ondansetron HCl 4 mg 02/08/25 13:22 Ondansetron Inj 2 Mg/Ml Inj 2 Ml IV 03/10/25 13:21 Q6H PRN NAUSEA OR VOMITING Protocol Sennosides 1 tab 02/09/25 09:00 02/14/25 08:40 Senna Tablet PO 03/11/25 08:59 1 tab QDAY [facility] Administration Protocol Sodium Chloride 1 gm 02/14/25 14:00 Sodium Chloride 1 Gm Tablet PO 03/16/25 13:59 TID [facility] Vitamin B Complex/Vit C/Folic Acid 1 tab 02/14/25 09:00 02/14/25 08:40 Vit B12/Vit C/Fa (Nephrovite) Tablet PO 03/16/25 08:59 1 tab QDAY [facility] Administration Plan Mr Angeles is a 49-year-old male with no past medical history who presented to the ED with left lower extremity extremity unable to bear weight. Was admitted for necrotizing fasciitis, general surgery was consulted will be taken to the operating room. Cellulitis and abscess of left leg s/p Incision and drainage of left leg abscess, POD#5 Osteomyelitis of 2nd and 3rd metatarsal Lactic acidosis?resolved On presentation vitals significant for tachycardia, tachypnea, febrile, leukocytosis with source being left lower extremity with necrotizing fasciitis/osteomyelitis Patient with left lower extremity swelling symptoms onset about 1 week Patient does state that he noted a spider bite about a month ago Foot x-ray shows osteomyelitis on 2nd and 3rd metatarsals, positive foreign body in soft tissue first digit No concern for DVT as ultrasound was negative Lower extremity CT showed soft tissue abscess with gas-forming organisms in the soft tissue anterior lateral of the mid and lower tibia extending to the ankle LRINEC score: 7 Blood cultures negative in 24hours Leukocytosis likely secondary to acute infection and recent OR procedure Doxycycline was ordered by ID, but cultures positive for Enterococcus faecalis. Clindamycin (02/08/2025-02/10/2025), vancomycin (02/08/2025-02/11/25), zosyn (02/08/2025- 02/11/2025) Plan: ? IV -> PO levofloxacin 750mg IV daily. (02/11 - ? PO doxycycline (02/13 - ? ID consult, appreciate recs ? Pain medications on board - Per general surgery and wound care, continue with Dakin solution clean up and daily dressing change Hypotonic Hyponatremia, hypovolemic-improving likely in the setting of above infection, improved with aggressive IV hydration, was given total 4L - corrected sodium is 129, continue with tight BG control Plan: - 1g salt tabs BID -> 3 times daily - f/u Na lvls Methamphetamine Use Disorder Past medical history of Meth use disorder and tested positive on this admission. Last used 1 month ago. Half life of meth 6-15 hours. Plan: -may given Midazolam if signs of withdrawal Newly diagnosed diabetes A1c stopped registering after >14 Patient was unaware that he was diabetic Plan: ? SSI ? glargine 25u ? lispro 7u TID ? carb consistent low ? Hypoglycemia protocol in place ? Registered dietitian referral sent for diabetes education - Will set up CGM prior to discharge for optimization Health maintenance: Disposition: tele. Pending insurance changed to [employer] to continue outpatient wound care. Feeding: carb consistent LOW Thrombo prophylaxis: heparin 5000 every 12H Gastric Ulcer prophylaxis: none CODE STATUS: DNR Plan of care discussed with attending Javier Bills M.D. PGY2 Disclaimer: Minor errors in entertainment centre manager may be present as this note was dictated using voice recognition software. Attending Provider Attestation/Addendum Cece Jimenez, , attest that I was physically present for the zheng portions of the service and evaluated the patient with the resident and I reviewed and discussed the case with the resident and agree with the resident's findings and plans of care as documented above Patient seen and evaluated this AM. He is eager to go home, but continues to have fevers. Case discussed with wound care nurse and social media marketing manager, both of whom were present upon discussing plan of care with patient and need for [facility] application to be able to obtain close follow up. Patient does not seem motivated to call. He states his family can likely care for his wound if he is unable to go to wound care center. Reiterated to patient the need for close follow up due to concern for worsening infection resulting in loss of limb. He stated he understood and will picker his phone if he receives any calls. He also deferred calling financial counsellor for after lunch. Wound continues to have purulent drainage. Continue with doxycyline and levaquin.
--- NOTE | 2025-02-14 12:12 | PC.SS ---
Follow up note: SS met with patient to verify if he had called [facility] worker yet. Patient states he did not. SS provided this number on Friday. Patient states he lost the phone number. SS met with patient with wound care nurse present. Discussed risks of discharging home with no insurance coverage to cover the cost of o/p wound clinic for follow up treatment. Patient understood. He plans on having his senior ssis developer help with wound care. SS provided contact number for [facility] worker again and stated I will follow up with him again this afternoon.
[2025-02-14] MEDS: SODIUM CHLORIDE 1 GM TABLET PO ×2 (13:07→21:23)
--- NOTE | 2025-02-14 14:50 | PC.DIETICIAN ---
Dietitian note: RD provided Contour Next EZ glucometer. Pt will need supplies orders on discharge. He prefers R[employer]ink[employer] 3 w/Algisys as he doesn't have a compatible smart phone... if insurance covers. Thank you
[2025-02-14] MEDS: ATORVASTATIN CALCIUM 20 MG TABLET 40 MG PO (21:14)
[2025-02-14] MEDS: DOXYCYCLINE 100 MG TABLET PO (21:14)
[2025-02-14] MEDS: INSULIN GLARGINE (Lantus) 5 UNIT/0.05 ML (PER 5 UNITS) 30 UNIT SC (21:17)
[2025-02-15] VITALS (9 sets, daily range): BP systolic 96–152; BP diastolic 62–88; PULSE 69–106; RESP 16–19; TEMP 37.2–38.3; O2SAT 93–96
[2025-02-15] MEDS: ACETAMINOPHEN 325 MG TABLET 650 MG PO (01:13)
[2025-02-15] MEDS: SODIUM CHLORIDE 1 GM TABLET PO ×2 (05:16→15:05)
[2025-02-15 05:59] LABS: Basophils # (Auto) 0.1 Thou/mm3 (0.0-0.2); Basophils % (Auto) 0 % (0-2.5); Eosinophils # (Auto) 0.2 Thou/mm3 (0.0-0.5); Eosinophils % (Auto) 1 % (0-10); Hematocrit 24.8 % (41.0-53.0); Immature Granulocytes % (Auto) 3 % (0-0); Immature Granulocytes Auto 0.82 Thou/mm3 (0.00-0.00); Lymphocytes # (Auto) 3.2 Thou/mm3 (1.0-4.8); Lymphocytes % (Auto) 12 % (10-50); Mean Corpuscular HGB Conc 33.5 g/dl (31.0-37.0); Mean Corpuscular Hemoglobin 27.8 pg (25.0-35.0); Mean Corpuscular Volume 83 fL (80-100); Monocytes # (Auto) 2.3 Thou/mm3 (0.0-0.8); Monocytes % (Auto) 8 % (0-12); Neutrophils # (Auto) 21.2 Thou/mm3 (1.8-7.7); Neutrophils % (Auto) 76 % (37-80); Nucleated Red Blood Cell # 0.02 Thou/mm3 (0.00-0.00); Nucleated Red Blood Cell % 0 /100 WBC (0); Platelet Count 565 Thou/mm3 (140-440); RDW Standard Deviation 41.1 fL (35.1-43.9); Red Blood Count 2.99 Miln/mm3 (4.50-5.90); White Blood Count 27.8 Thou/mm3 (3.8-10.6)
[2025-02-15 06:21] LABS: Alanine Aminotransferase 35 U/L (10-49); Albumin, Serum 2.8 gm/dL (3.5-5.0); Albumin/Globulin Ratio 0.7 (1.2-2.2); Alkaline Phosphatase 276 U/L (46-116); Anion Gap 9 (7-16); Aspartate Amino Transferase 110 U/L (0-34); BUN/Creatinine Ratio 16 Ratio (12-20); Bilirubin,Total 0.3 mg/dL (0.3-1.2); Blood Urea Nitrogen 13 mg/dL (9-23); Calcium 7.8 mg/dL (8.3-10.6); Calcium (Corrected) 8.8 mg/dL (8.5-10.1); Carbon Dioxide 25.8 mMol/L (20.0-31.0); Chloride 95 mMol/L (98-107); Creatinine (Component) 0.8 mg/dL (0.6-1.3); Estimated Creatinine Clearance 112.3 mL/min (>60); Globulin 3.8 gm/dL (2.3-3.5); Glucose 82 mg/dL (74-106); Magnesium 1.6 mg/dL (1.6-2.6); Osmolality,Calculated 259 (275-295); Phosphorous 3.3 mg/dL (2.4-5.1); Potassium 3.7 mMol/L (3.4-5.1); Sodium 130 mMol/L (136-145); Total Protein 6.6 gm/dL (5.7-8.2); Vancomycin,Trough 3.3 mcg/mL (5.0-10.0); eGFR > 60 See Note
[2025-02-15 07:15] LABS: Hemoglobin 8.3 g/dL (13.5-16.0)
[2025-02-15] MEDS: INSULIN LISPRO (AdmeLOG) 1 UNIT/0.01 ML UNIT SC (08:37)
[2025-02-15] MEDS: HEPARIN SOD INJ 5000 UNIT/ML VIAL SC (08:37)
[2025-02-15] MEDS: SENNA TABLET 1 TAB PO (08:37)
[2025-02-15] MEDS: VIT B12/Vit C/FA (Nephrovite) TABLET 1 TAB PO (08:37)
[2025-02-15] MEDS: DOXYCYCLINE 100 MG TABLET PO (08:37)
[2025-02-15] MEDS: LEVOFLOXACIN 250 MG TABLET 750 MG PO (08:37)
[2025-02-15] MEDS: INSULIN LISPRO (AdmeLOG) 1 UNIT/0.01 ML UNIT 10 UNIT SC (08:38)
--- NOTE | 2025-02-15 11:54 | PD.RESPRO ---
Documentation for date of: 02/15/25 Subjective Subjective Interval history: Patient seen today at the bedside found awake, alert, orientedx3. Overnight patient developed fever episodes with Tmax 101. Vitals and labs reviewed. Patient still with drainage from wound site, however patient's pain has improved and is able to bear weight on the leg. Patient is pending outpatient wound care and some insurance authorization. Exam Vital Signs Temp Pulse Resp BP Pulse Ox O2 Del Method O2 Flow Rate 99.2 F 69 18 96/62 96 Room Air 2 02/15/25 11:45 02/15/25 11:45 02/15/25 11:45 02/15/25 11:45 02/15/25 11:45 02/15/25 11:45 02/10/25 08:00 Narrative Exam Physical Exam GENERAL: NAD, AAOx3 HEENT: Moist mucosa. Eyes open, symmetrical, & clear CARDIO: Heart RRR, no obvious murmurs PULM: No noted coughing/dyspnea CTA B/L, no R/W/R GI: Abdomen soft, nondistended, no pain on palpation. BSx4 SKIN/MSK/EXT: Left lower extremity with purulent discharge, edema improving, no pain on palpation. Able to bear weight NEURO: AAOx3, no focal neuro deficits, able to move all 4 extremities Objective Labs 02/15/25 04:45 02/15/25 04:45 Labs: Laboratory Results - last 24 hr 02/15/25 04:45 WBC 27.8 H RBC 2.99 L Hgb 8.3 L Hct 24.8 L MCV 83 MCH 27.8 MCHC 33.5 RDW Std Deviation 41.1 Plt Count 565 H D Neut % (Auto) 76 Lymph % (Auto) 12 [place] % (Auto) 8 Eos % (Auto) 1 Baso % (Auto) 0 Neut # (Auto) 21.2 H Lymph # (Auto) 3.2 [place] # (Auto) 2.3 H Eos # (Auto) 0.2 Baso # (Auto) 0.1 Immature Gran # (Auto) 0.82 H Absolute Nucleated RBC 0.02 H Immature Gran % 3 H Nucleated RBC % 0 Sodium 130 L Potassium 3.7 D Chloride 95 L Carbon Dioxide 25.8 Anion Gap 9 BUN 13 Creatinine 0.8 Estim Creat Clear Calc 112.3 eGFR > 60 BUN/Creatinine Ratio 16 Glucose 82 D Calculated Osmolality 259 L Calcium 7.8 L Corrected Calcium 8.8 Phosphorus 3.3 Magnesium 1.6 Total Bilirubin 0.3 AST 110 H ALT 35 Alkaline Phosphatase 276 H Total Protein 6.6 Albumin 2.8 L Globulin 3.8 H Albumin/Globulin Ratio 0.7 L Vancomycin Trough 3.3 L Quality Measures Quality Measures sepsis Current suspected stage: ruled out Possible source: skin/soft tissue (and bone) Blood cultures ordered: yes Antibiotic ordered: Yes Assessment & Plan Assessment Current Active Medications: Generic Name Dose Route Start Last Admin Trade Name Freq PRN Reason Stop Dose Admin Acetaminophen 1,000 mg 02/15/25 10:20 Acetaminophen 500 Mg Tablet PO 03/10/25 13:21 Q6H PRN Pain Scale 1-3 or Fever >99.5 Atorvastatin Calcium 40 mg 02/14/25 21:00 02/14/25 21:14 Atorvastatin Calcium 20 Mg Tablet PO 03/16/25 20:59 40 mg HS SERA Administration Dextrose 50 ml 02/08/25 14:06 Dextrose 50%-Water Inj 50 Ml Syringe IV 03/10/25 14:05 Q15MIN PRN BG <50 OR BG <70 & pt unresponsive Doxycycline Hyclate 100 mg 02/14/25 21:00 02/15/25 08:37 Doxycycline 100 Mg Tablet PO 02/21/25 20:59 100 mg BID SERA Administration Ferrous Sulfate 325 mg 02/14/25 08:15 02/14/25 08:40 Ferrous Sulf 325 Mg Tablet PO 03/16/25 08:14 325 mg QOD [facility] Administration Glucagon 1 mg 02/08/25 14:06 Glucagon Inj 1 Mg Vial IM Q15MIN PRN BG <70, and no IV access Heparin Sodium (Porcine) 5,000 unit 02/09/25 21:00 02/15/25 08:37 Heparin Sod Inj 5000 Unit/Ml Vial SC 02/23/25 20:59 5,000 unit Q12HR [facility] Administration Insulin Glargine 30 unit 02/14/25 21:00 02/14/25 21:17 Insulin Glargine (Lantus) 5 Unit/0.05 Ml (Per 5 Units) SC 03/16/25 20:59 30 unit HS [facility] Administration Insulin Human Lispro 0 unit 02/09/25 11:30 02/15/25 08:37 Insulin Lispro (Admelog) 1 Unit/0.01 Ml Unit SC 03/11/25 11:29 1 unit ACHS [facility] Administration Protocol Insulin Human Lispro 10 unit 02/14/25 11:30 02/15/25 08:38 Insulin Lispro (Admelog) 1 Unit/0.01 Ml Unit SC 03/16/25 11:29 10 unit AC [facility] Administration Levofloxacin 750 mg 02/15/25 09:00 02/15/25 08:37 Levofloxacin 250 Mg Tablet PO 02/22/25 08:59 750 mg QDAY [facility] Administration Ondansetron HCl 4 mg 02/08/25 13:22 Ondansetron Inj 2 Mg/Ml Inj 2 Ml IV 03/10/25 13:21 Q6H PRN NAUSEA OR VOMITING Protocol Sennosides 1 tab 02/09/25 09:00 02/14/25 08:40 Senna Tablet PO 03/11/25 08:59 1 tab QDAY [facility] Administration Protocol Sodium Chloride 1 gm 02/14/25 14:00 02/15/25 05:16 Sodium Chloride 1 Gm Tablet PO 03/16/25 13:59 1 gm TID [facility] Administration Vitamin B Complex/Vit C/Folic Acid 1 tab 02/14/25 09:00 02/15/25 08:37 Vit B12/Vit C/Fa (Nephrovite) Tablet PO 03/16/25 08:59 1 tab QDAY [facility] Administration Plan 49-year-old male with no past medical history who presented to the ED with left lower extremity extremity unable to bear weight. Was admitted for necrotizing fasciitis, general surgery was consulted will be taken to the operating room. #Cellulitis and abscess of left leg s/p Incision and drainage of left leg abscess, POD#5 #Osteomyelitis of 2nd and 3rd metatarsal #Lactic acidosis?resolved On presentation vitals significant for tachycardia, tachypnea, febrile, leukocytosis with source being left lower extremity with necrotizing fasciitis/osteomyelitis Patient with left lower extremity swelling symptoms onset about 1 week Patient does state that he noted a spider bite about a month ago Foot x-ray shows osteomyelitis on 2nd and 3rd metatarsals, positive foreign body in soft tissue first digit No concern for DVT as ultrasound was negative Lower extremity CT showed soft tissue abscess with gas-forming organisms in the soft tissue anterior lateral of the mid and lower tibia extending to the ankle LRINEC score: 7 Blood cultures negative in 24hours Leukocytosis likely secondary to acute infection and recent OR procedure Doxycycline was ordered by ID, but cultures positive for Enterococcus faecalis. OFF clindamycin (02/08/2025-02/10/2025), vancomycin (02/08/2025-02/11/25), zosyn (02/08/2025-02/11/2025) ? On levofloxacin 750 mg p.o. daily. (02/11/2025-) ? on doxycycline (02/13/2025-) ? ID consult, appreciate reccs ? Pain medications on board ? Per general surgery and wound care, continue with Dakin solution clean up and daily dressing change ? F/u with gen/surg recs #Hypotonic Hyponatremia, hypovolemic-improving likely in the setting of above infection, improved with aggressive IV hydration, was given total 4L - 1g salt tabs TID - f/u Na lvls #Methamphetamine Use Disorder Past medical history of Meth use disorder and tested positive on this admission. Last used 1 month ago. Half life of meth 6-15 hours. -may given Midazolam if signs of withdrawal #Newly diagnosed diabetes A1c stopped registering after >14 Patient was unaware that he was diabetic ? SSI ? glargine 30u ? lispro 10u TID ? carb consistent low ? Hypoglycemia protocol in place ? Registered dietitian referral sent Disposition: tele, pending OP wound care Fluids: none Feeding: carb consistent low Thrombo prophylaxis: heparin Gastric Ulcer prophylaxis: none CODE STATUS: DNR Case discussed with my senior Dr. Somers and my attending Dr. Josette Laguna MD PGY-1 Patient examined and case discussed with the team including attending physician . Note reviewed, I agree with the care plan as documented. Patient left AGAINST MEDICAL ADVICE around 3 PM. He showed full comprehension for the risks involved. Was alert and oriented at the time of departure. Please refer to the note above for further details. - Javier Somers MD, PGY 2 Disclaimer: The document may contain phonetic/typographic errors due to voice recognition software. These errors are purely due to imperfections in the software program and should not be misconstrued in any way to compromise the substance of the patient's medical care during this visit. Attending Provider Attestation/Addendum Barbara, Cece Finch, DO, attest that I was physically present for the hzeng portions of the service and evaluated the patient with the resident and I reviewed and discussed the case with the resident and agree with the resident's findings and plans of care as documented above Patient seen and eval this a.m. He states that he is anxious to go home. He is confident that his family can help him with the wound care dressing. He states that he has been watching us do wound care every day. He has not called for [employer] yet, but is confident that his family will help him obtain insurance. Explained to patient that the insurance will not immediately kick in despite application. Patient is indifferent and states that he can care for himself at home. Patient continued to have fevers overnight. However, in the afternoon at 3:35 PM, patient stated that he was going to leave today no matter what. Discussed with patient at bedside with wound care nurse and bedside nurse that if he leaves AGAINST MEDICAL ADVICE, that he would possibly lose his left leg due to improper care, worsening of infection and possibly sudden . Patient states that he was understanding and would still like to leave within the hour. Patient was alert and oriented x 3, capable of making his own medical decisions. He proceeded to sign AGAINST MEDICAL ADVICE despite counseling of risks.
--- NOTE | 2025-02-15 15:05 | PC.NURSE ---
pt is saying he wants his discharge papers, I let him know he hasn't been discharged, if he leaves it would be against medical advice, I asked Dr. Meadows to come and speak with pt.
--- NOTE | 2025-02-15 15:45 | PC.SS ---
Patient to leave AMA. SS reminded him to follow up with [facility] and provided additional resources.
--- NOTE | 2025-02-15 15:52 | PC.NURSE ---
removed pt's intact IV and he signed Against Medical Advise form
--- NOTE | 2025-02-15 16:12 | EVENTNT_ITS ---
<Statement entered by Cece Finch DO - 02/15/25 17:40> I, Cece Finch DO, attest that I was physically present for the zheng portions of the service and evaluated the patient with the resident and I reviewed and discussed the case with the resident and agree with the resident's findings and plans of care as documented above Documentation for date of: 02/15/25 Event Note Event Note: Received a call that patient wanted to leave the hospital. Patient was instr ucted the risks of leaving the hospital against medical advice and severity of his condition and complications including . The patient has decided to sign out against medical advice (AMA) after being explained the risks & benefits of leaving before medical clearance/discharge. The patient had the opportunity to ask questions about their condition which were answered to their satisfaction; the patient is aware that they may return for further care at any time as needed. Case discussed with my attending Dr. Josette Laguna MD PGY-1
== END 2025-02-15 15:50 | disposition left against medical advice (07) | DRG 871 ==
LOC: SERX 13:12 → SERHOLD 13:15 → S2SX 02-09 06:27 → S3NX 02-09 16:46 → S2SX 02-14 10:07 → SERHOLD 02-14 10:07
PROVIDERS: Nurse Practitioner Primary Care; Student in an Organized Health Care Education/Training Program; Surgery; Admitting Provider Internal Medicine; Emergency Provider Emergency Medicine; Visit Provider Internal Medicine
DX: A41.81 Sepsis due to Enterococcus (principal); M72.6 Necrotizing fasciitis; L03.116 Cellulitis of left lower limb; L02.416 Cutaneous abscess of left lower limb; E87.1 Hypo-osmolality and hyponatremia; E87.20 Acidosis, unspecified; M86.8X7 Other osteomyelitis, ankle and foot; T63.301A Toxic effect of unspecified spider venom, accidental (unintentional), initial encounter; F17.200 Nicotine dependence, unspecified, uncomplicated; Z66 Do not resuscitate; E11.69 Type 2 diabetes mellitus with other specified complication; E86.1 Hypovolemia; F15.10 Other stimulant abuse, uncomplicated; F17.210 Nicotine dependence, cigarettes, uncomplicated; R65.20 Severe sepsis without septic shock; Z79.4 Long term (current) use of insulin; Z91.148 Patient's other noncompliance with medication regimen for other reason; Z53.29 Procedure and treatment not carried out because of patient's decision for other reasons
CPT/HCPCS: 36415; 73630; 73701; 80053; 80061; 80069; 80074; 80202; 80307; 80320; 82550; 83036; 83605; 83735; 84100; 84145; 85025; 85610; 85652; 85730; 86140; 87040; 87070; 87075; 87076; 87077; 87081; 87186; 87205; 93005; 93225; 93971; 96365; 96366; 96367; 96372; 99291; A4217; A4649; J0131; J1644; J1815; J1956; J2250; J2270; J2543; J2704; J3010; J3370; J3475; J3490; J7030; J7040; J7120; Q9967; S0077; A9270; G0480; J0736